=== PATIENT | male | born 1940 | race Caucasian/White ===

== ENCOUNTER 2016-08-08 21:28 | Inpatient (IN) | payer OTHER ==
[~2016-08-08] VITALS: Ht 180.3 cm; Wt 84.7 kg
[2016-08-08 21:59] LABS: HEMATOCRIT 27.7 % (38.0-50.0); MCH 30.7 PG (29.0-34.0); MCHC 32.1 G/DL (30.0-36.0); MCV 95.5 FL (86-99); MEAN PLAT.VOLUME 9.9 uM^3 (9.0-12.4); PLATELET COUNT 167 K/uL (156-360); RBC DIS.WIDTH-CV 13.1 % (11.8-14.6); RBC DIS.WIDTH-SD 43.6 % (39-53); WHITE BLOOD COUNT 5.4 K/uL (4.1-10.2)
[2016-08-08 22:12] LABS: CHLORIDE 109 mEq/L (99-109); POTASSIUM 4.4 mEq/L (3.7-5.4); SODIUM 141 mEq/L (136-147)
[2016-08-08 22:13] LABS: GLUCOSE 146 mg/dL (70-99)
[2016-08-08 22:15] LABS: ANION GAP 13 MEQ/L (2-14)
[2016-08-08 22:17] LABS: GFR ESTIMATE (CALCULATED) 9 mL/min/
[2016-08-08 22:18] LABS: UREA NITROGEN (BUN) 28 mg/dL (9-23)
[2016-08-08 22:20] LABS: TROP-I INTERPRETATION NEGATIVE; TROPONIN-I 0.25 ng/mL (0.0-0.30)
[2016-08-08] MEDS ORDERED: RENVELA800 MG PO ×2 (23:15)
[2016-08-08] MEDS ORDERED: ASPIR 8181 M1 PO (23:15)
[2016-08-08] MEDS ORDERED: CARVEDILOL25 MG PO (23:15)
[2016-08-08] MEDS ORDERED: ATORVASTATIN CA40 MG PO (23:15)
[2016-08-08] MEDS ORDERED: OMEPRAZOLE20 MG PO (23:15)
[2016-08-08] MEDS ORDERED: REQUIP4 MG PO ×3 (23:23→23:26)
[2016-08-09] VITALS (7 sets, daily range): BP systolic 116–160; BP diastolic 64–78
[2016-08-09 03:25] LABS: TROP-I INTERPRETATION INDETERMINATE; TROPONIN-I 0.44 ng/mL (0.0-0.30)
[2016-08-09 10:43] LABS: TROP-I INTERPRETATION POSITIVE; TROPONIN-I 0.72 ng/mL (0.0-0.30)
[2016-08-09 13:56] LABS: INTER. NORMALIZED RATIO 1.1; PROTHROMBIN TIME 10.7 (9.2-11.2); PTT 29.2 (25-32)
[2016-08-09 19:13] LABS: TROP-I INTERPRETATION POSITIVE
[2016-08-09 19:36] LABS: TROPONIN-I 0.73 ng/mL (0.0-0.30)
[2016-08-10 00:01] VITALS: BP 154/78
[2016-08-10 00:56] LABS: TROP-I INTERPRETATION POSITIVE
[2016-08-10 03:54] VITALS: BP 143/73
[2016-08-10 04:32] LABS: EOSINOPHIL (%) 3.7 % (0-5); EOSINOPHIL COUNT 0.2 K/uL (0-0.3); LYMPHOCYTE COUNT 0.7 K/uL (1.0-2.8); MCH 30.7 PG (29.0-34.0); MCHC 32.3 G/DL (30.0-36.0); MCV 94.9 FL (86-99); MEAN PLAT.VOLUME 9.7 uM^3 (9.0-12.4); MONOCYTE (%) 10.7 % (3-12); MONOCYTE COUNT 0.5 K/uL (0-0.8); NEUTROPHIL (%) 70.4 % (45-76); NEUTROPHIL COUNT 3.4 K/uL (1.8-6.4); PLATELET COUNT 133 K/uL (156-360); RBC DIS.WIDTH-CV 13.1 % (11.8-14.6); RED BLOOD COUNT 2.74 M/uL (4.00-5.50); WHITE BLOOD COUNT 4.9 K/uL (4.1-10.2)
[2016-08-10 04:44] LABS: CHLORIDE 104 mEq/L (99-109); POTASSIUM 4.9 mEq/L (3.7-5.4); SODIUM 137 mEq/L (136-147)
[2016-08-10 04:45] LABS: MAGNESIUM 2.2 mg/dL (1.3-2.7)
[2016-08-10 04:46] LABS: GLUCOSE 137 mg/dL (70-99)
[2016-08-10 04:47] LABS: ANION GAP 17 MEQ/L (2-14)
[2016-08-10 04:50] LABS: GFR ESTIMATE (CALCULATED) 6 mL/min/
[2016-08-10 04:52] LABS: TROP-I INTERPRETATION POSITIVE
[2016-08-10 04:57] LABS: UREA NITROGEN (BUN) 56 mg/dL (9-23)
[2016-08-10 04:58] LABS: TROPONIN-I 0.72 ng/mL (0.0-0.30)
[2016-08-10 08:28] VITALS: BP 150/72
[2016-08-10 12:02] VITALS: BP 157/75
[2016-08-10 12:34] LABS: TROP-I INTERPRETATION POSITIVE
[2016-08-10 12:35] LABS: TROPONIN-I 0.64 ng/mL (0.0-0.30)
[2016-08-10 20:28] VITALS: BP 158/77
[2016-08-11 00:01] VITALS: BP 138/65
[2016-08-11 03:30] LABS: EOSINOPHIL COUNT 0.1 K/uL (0-0.3); HEMATOCRIT 26.8 % (38.0-50.0); LYMPHOCYTE COUNT 0.5 K/uL (1.0-2.8); MCH 30.8 PG (29.0-34.0); MCHC 32.8 G/DL (30.0-36.0); MCV 93.7 FL (86-99); MEAN PLAT.VOLUME 10.1 uM^3 (9.0-12.4); MONOCYTE (%) 13.3 % (3-12); MONOCYTE COUNT 0.5 K/uL (0-0.8); NEUTROPHIL (%) 71.2 % (45-76); NEUTROPHIL COUNT 2.9 K/uL (1.8-6.4); PLATELET COUNT 152 K/uL (156-360); RBC DIS.WIDTH-SD 42.2 % (39-53); RED BLOOD COUNT 2.86 M/uL (4.00-5.50); WHITE BLOOD COUNT 4.1 K/uL (4.1-10.2)
[2016-08-11 03:33] LABS: CHLORIDE 98 mEq/L (99-109); POTASSIUM 3.9 mEq/L (3.7-5.4); SODIUM 138 mEq/L (136-147)
[2016-08-11 03:35] LABS: GLUCOSE 139 mg/dL (70-99)
[2016-08-11 03:36] LABS: ANION GAP 12 MEQ/L (2-14)
[2016-08-11 03:39] LABS: GFR ESTIMATE (CALCULATED) 10 mL/min/; UREA NITROGEN (BUN) 28 mg/dL (9-23)
[2016-08-11 03:40] VITALS: BP 127/65
[2016-08-11 12:00] VITALS: BP 115/57
[2016-08-11] MEDS ORDERED: CLOPIDOGREL75 MG PO (14:19)
[2016-08-11] MEDS ORDERED: LISINOPRIL2.5 MG PO (14:19)
== END 2016-08-11 16:44 | disposition home or self-care (01) | DRG 280 ==
LOC: EME → EDBD 21:28 → EME 21:28 → EDOF 22:59 → 5WEST 23:57 → 4EAST 08-09 13:59 → 5WEST 08-09 13:59 → 4EAST 08-09 18:04
PROVIDERS: Hospitalist; Internal Medicine Cardiovascular Disease; Internal Medicine Nephrology; Physician Assistant
PROC: 5A1D60Z (ICD-10-PCS; principal; 2016-08-10)
DX: I22.2 Subsequent non-ST elevation (NSTEMI) myocardial infarction (principal); E87.2 Acidosis; Q61.9 Cystic kidney disease, unspecified; N18.6 End stage renal disease; I12.0 Hypertensive chronic kidney disease with stage 5 chronic kidney disease or end stage renal disease; I21.4 Non-ST elevation (NSTEMI) myocardial infarction; I25.5 Ischemic cardiomyopathy; I25.10 Atherosclerotic heart disease of native coronary artery without angina pectoris; J44.9 Chronic obstructive pulmonary disease, unspecified; D64.9 Anemia, unspecified; E78.5 Hyperlipidemia, unspecified; Z79.82 Long term (current) use of aspirin; Z87.891 Personal history of nicotine dependence; Z99.2 Dependence on renal dialysis; Z95.810 Presence of automatic (implantable) cardiac defibrillator; Z86.74 Personal history of sudden cardiac arrest; E87.70 Fluid overload, unspecified; I50.9 Heart failure, unspecified
CPT/HCPCS: 71020; 74176; 76705; 76775; 80048; 83605; 83735; 84100; 84484; 85025; 85027; 85610; 85730; 93005; 99281; 99284; G0378; J0696; J1644; J2270; J2405; J7050

== ENCOUNTER 2017-01-07 18:37 | Inpatient (IN) | payer OTHER, MEDICARE ==
[~2017-01-07] VITALS: Ht 175.3 cm; Wt 81.2 kg
[~2017-01-07 18:37] MED LIST: ASPIR 8181 M1 PO; ATORVASTATIN CA40 MG PO; CARVEDILOL25 MG PO; CLOPIDOGREL75 MG PO; LISINOPRIL2.5 MG PO; OMEPRAZOLE20 MG PO; RENVELA800 MG PO; REQUIP4 MG PO
[2017-01-07 19:44] LABS: EOSINOPHIL (%) 5.7 % (0-5); EOSINOPHIL COUNT 0.3 K/uL (0-0.3); HEMATOCRIT 24.2 % (38.0-50.0); IMMATURE GRANULOCYTE (%) 0.5 % (0.0-0.7); INSTRUMENT ABS NEUTROPHIL CT 4.4 K/uL; LYMPHOCYTE COUNT 0.5 K/uL (1.0-2.8); MCH 29.6 PG (29.0-34.0); MCHC 33.1 G/DL (30.0-36.0); MCV 89.6 FL (86-99); MEAN PLAT.VOLUME 9.7 uM^3 (9.0-12.4); MONOCYTE (%) 11.6 % (3-12); MONOCYTE COUNT 0.7 K/uL (0-0.8); NEUTROPHIL (%) 73.5 % (45-76); NEUTROPHIL COUNT 4.4 K/uL (1.8-6.4); PLATELET COUNT 156 K/uL (156-360); RBC DIS.WIDTH-CV 16.4 % (11.8-14.6); RBC DIS.WIDTH-SD 53.5 % (39-53); WHITE BLOOD COUNT 5.9 K/uL (4.1-10.2)
[2017-01-07 19:53] LABS: CHLORIDE 102 mEq/L (99-109); POTASSIUM 4.2 mEq/L (3.7-5.4); SODIUM 140 mEq/L (136-147)
[2017-01-07 19:56] LABS: GLUCOSE 133 mg/dL (70-99)
[2017-01-07 19:57] LABS: ANION GAP 12 MEQ/L (2-14); TOTAL BILIRUBIN 0.6 mg/dL (0.0-1.0)
[2017-01-07 19:59] LABS: ALKALINE PHOSPHATASE 61 IU/L (3-129); GFR ESTIMATE (CALCULATED) 10 mL/min/
[2017-01-07 20:00] LABS: UREA NITROGEN (BUN) 61 mg/dL (9-23)
[2017-01-07 20:05] LABS: TROP-I INTERPRETATION NEGATIVE; TROPONIN-I 0.19 ng/mL (0.0-0.30)
[2017-01-07] MEDS ORDERED: LIPITOR80 MG PO (21:35)
[2017-01-07] MEDS ORDERED: PLAVIX75 MG PO (21:35)
[2017-01-07] MEDS ORDERED: CARVEDILOL12.5 MG PO (21:36)
[2017-01-07] MEDS ORDERED: LISINOPRIL10 MG PO (21:37)
[2017-01-07] MEDS ORDERED: REQUIP0.5 MG PO (21:39)
[2017-01-07] MEDS ORDERED: PROTONIX40 MG PO (21:43)
[2017-01-07] MEDS ORDERED: SENSIPAR30 MG PO (21:44)
[2017-01-07 23:38] VITALS: BP 107/67
[2017-01-08] VITALS (8 sets, daily range): BP systolic 101–117; BP diastolic 54–68
[2017-01-08 00:52] LABS: EOSINOPHIL (%) 5.9 % (0-5); EOSINOPHIL COUNT 0.3 K/uL (0-0.3); HEMATOCRIT 22.3 % (38.0-50.0); IMMATURE GRANULOCYTE (%) 0.2 % (0.0-0.7); INSTRUMENT ABS NEUTROPHIL CT 3.9 K/uL; LYMPHOCYTE COUNT 0.5 K/uL (1.0-2.8); MCH 29.7 PG (29.0-34.0); MCHC 33.2 G/DL (30.0-36.0); MCV 89.6 FL (86-99); MEAN PLAT.VOLUME 9.5 uM^3 (9.0-12.4); MONOCYTE (%) 12.1 % (3-12); MONOCYTE COUNT 0.7 K/uL (0-0.8); NEUTROPHIL (%) 71.4 % (45-76); NEUTROPHIL COUNT 3.9 K/uL (1.8-6.4); PLATELET COUNT 130 K/uL (156-360); RBC DIS.WIDTH-CV 16.4 % (11.8-14.6); RBC DIS.WIDTH-SD 53.4 % (39-53); RED BLOOD COUNT 2.49 M/uL (4.00-5.50); WHITE BLOOD COUNT 5.4 K/uL (4.1-10.2)
[2017-01-08 01:15] LABS: TROP-I INTERPRETATION NEGATIVE; TROPONIN-I 0.18 ng/mL (0.0-0.30)
[2017-01-08 07:40] LABS: EOSINOPHIL (%) 5.7 % (0-5); EOSINOPHIL COUNT 0.3 K/uL (0-0.3); HEMATOCRIT 22.4 % (38.0-50.0); IMMATURE GRANULOCYTE (%) 0.5 % (0.0-0.7); INSTRUMENT ABS NEUTROPHIL CT 4.4 K/uL; LYMPHOCYTE COUNT 0.6 K/uL (1.0-2.8); MCHC 32.1 G/DL (30.0-36.0); MCV 93.3 FL (86-99); MEAN PLAT.VOLUME 10.3 uM^3 (9.0-12.4); MONOCYTE (%) 10.5 % (3-12); MONOCYTE COUNT 0.6 K/uL (0-0.8); NEUTROPHIL (%) 73.6 % (45-76); NEUTROPHIL COUNT 4.4 K/uL (1.8-6.4); PLATELET COUNT 143 K/uL (156-360); RBC DIS.WIDTH-CV 16.3 % (11.8-14.6); RBC DIS.WIDTH-SD 55.5 % (39-53)
[2017-01-08 07:57] LABS: INTER. NORMALIZED RATIO 1.9; PROTHROMBIN TIME 19.5 (9.2-11.2); PTT 36.4 (25-32)
[2017-01-08 08:08] LABS: ALKALINE PHOSPHATASE 62 IU/L (3-129); ANION GAP 15 MEQ/L (2-14); CHLORIDE 102 MEQ/L (99-109); GFR ESTIMATE (CALCULATED) 9 mL/min/; GLUCOSE 92 mg/dL (70-99); POTASSIUM 4.6 MEQ/L (3.7-5.4); SAMPLE HEMOLYSIS CHECK 0; SAMPLE ICTERIC CHECK 0; SAMPLE LIPEMIA CHECK 0; SODIUM 137 MEQ/L (136-147); TOTAL BILIRUBIN 0.4 MG/DL (0.0-1.0); UREA NITROGEN (BUN) 77 mg/dL (9-23)
[2017-01-08 08:12] LABS: TROP-I INTERPRETATION NEGATIVE; TROPONIN-I 0.15 ng/mL (0.0-0.30)
[2017-01-08 14:26] LABS: ANTI-HEPATITIS B CORE (TOTAL) Nonreactive; HBCT INDEX 0.05; HPCA INDEX 0.07
[2017-01-08 14:27] LABS: AHBS INDEX 0.73; HEPATITIS B SURFACE ANTIBODY Nonreactive
[2017-01-08 21:20] LABS: EOSINOPHIL (%) 6.6 % (0-5); EOSINOPHIL COUNT 0.3 K/uL (0-0.3); IMMATURE GRANULOCYTE (%) 0.2 % (0.0-0.7); INSTRUMENT ABS NEUTROPHIL CT 3.4 K/uL; LYMPHOCYTE COUNT 0.5 K/uL (1.0-2.8); MCHC 34.1 G/DL (30.0-36.0); MCV 90.9 FL (86-99); MEAN PLAT.VOLUME 9.8 uM^3 (9.0-12.4); MONOCYTE (%) 11.4 % (3-12); MONOCYTE COUNT 0.6 K/uL (0-0.8); NEUTROPHIL COUNT 3.4 K/uL (1.8-6.4); PLATELET COUNT 139 K/uL (156-360); RBC DIS.WIDTH-CV 15.3 % (11.8-14.6); RBC DIS.WIDTH-SD 51.2 % (39-53); RED BLOOD COUNT 2.42 M/uL (4.00-5.50); WHITE BLOOD COUNT 4.8 K/uL (4.1-10.2)
[2017-01-08 21:35] LABS: INTER. NORMALIZED RATIO 1.1; PTT 24.3 (25-32)
[2017-01-08 22:18] LABS: METH RESISTANT S AUREUS PCR NEGATIVE (NEGATIVE)
[2017-01-08 22:32] LABS: PROBE CHECK PASS; SPECIMEN PROCESSING CONTROL PASS
[2017-01-08 22:35] LABS: PROTHROMBIN TIME 10.7 (9.2-11.2)
[2017-01-09] VITALS (18 sets, daily range): BP systolic 84–111; BP diastolic 40–67
[2017-01-09 00:53] LABS: POINT-OF-CARE METER ID UU13113803
[2017-01-09 06:37] LABS: EOSINOPHIL (%) 6.5 % (0-5); EOSINOPHIL COUNT 0.3 K/uL (0-0.3); HEMATOCRIT 22.8 % (38.0-50.0); IMMATURE GRANULOCYTE (%) 0.4 % (0.0-0.7); LYMPHOCYTE COUNT 0.4 K/uL (1.0-2.8); MCH 30.2 PG (29.0-34.0); MCHC 32.9 G/DL (30.0-36.0); MCV 91.9 FL (86-99); MONOCYTE (%) 9.4 % (3-12); MONOCYTE COUNT 0.5 K/uL (0-0.8); NEUTROPHIL (%) 75.5 % (45-76); PLATELET COUNT 161 K/uL (156-360); RBC DIS.WIDTH-CV 15.5 % (11.8-14.6); RBC DIS.WIDTH-SD 51.2 % (39-53); RED BLOOD COUNT 2.48 M/uL (4.00-5.50); WHITE BLOOD COUNT 5.2 K/uL (4.1-10.2)
[2017-01-09 06:49] LABS: INTER. NORMALIZED RATIO 1.1; PROTHROMBIN TIME 10.7 (9.2-11.2); PTT 28.4 (25-32)
[2017-01-09 07:11] LABS: FIBRINOGEN 459 MG/DL (160-450)
[2017-01-09 07:15] LABS: ALKALINE PHOSPHATASE 68 IU/L (3-129); ANION GAP 12 MEQ/L (2-14); CHLORIDE 101 MEQ/L (99-109); GFR ESTIMATE (CALCULATED) 14 mL/min/; LACTATE DEHYDROGENASE 160 IU/L (20-246); POTASSIUM 3.8 MEQ/L (3.7-5.4); SAMPLE HEMOLYSIS CHECK 0; SAMPLE ICTERIC CHECK 0; SAMPLE LIPEMIA CHECK 0; SODIUM 140 MEQ/L (136-147); TOTAL BILIRUBIN 0.4 MG/DL (0.0-1.0); UREA NITROGEN (BUN) 43 mg/dL (9-23)
[2017-01-09 07:16] LABS: GLUCOSE 181 mg/dL (70-99)
[2017-01-09 18:38] LABS: HEMATOCRIT 29.1 % (38.0-50.0); MCV 90.1 FL (86-99)
== END 2017-01-09 22:25 | disposition short-term general hospital (02) | DRG 377 ==
LOC: EME 18:37 → 5SOUTH 21:13 → EDOF 21:13 → 4WEST 21:13 → 5SOUTH 22:44 → 4WEST 01-08 19:12
PROVIDERS: Internal Medicine; Internal Medicine Nephrology; Obstetrics & Gynecology; Physician Assistant; Specialist; Student in an Organized Health Care Education/Training Program
PROC: 5A1D60Z (ICD-10-PCS; principal; 2017-01-08)
PROC: 30233N1 Transfusion of Nonautologous Red Blood Cells into Peripheral Vein, Percutaneous Approach (ICD-10-PCS; 2017-01-08)
PROC: 0DJ08ZZ Inspection of Upper Intestinal Tract, Via Natural or Artificial Opening Endoscopic (ICD-10-PCS; 2017-01-08)
PROC: 02HV33Z Insertion of Infusion Device into Superior Vena Cava, Percutaneous Approach (ICD-10-PCS; 2017-01-09)
DX: K92.1 Melena (principal); I21.4 Non-ST elevation (NSTEMI) myocardial infarction; I47.2 Ventricular tachycardia; I13.2 Hypertensive heart and chronic kidney disease with heart failure and with stage 5 chronic kidney disease, or end stage renal disease; N18.6 End stage renal disease; I50.9 Heart failure, unspecified; R79.1 Abnormal coagulation profile; D64.9 Anemia, unspecified; K29.70 Gastritis, unspecified, without bleeding; K25.9 Gastric ulcer, unspecified as acute or chronic, without hemorrhage or perforation; K29.80 Duodenitis without bleeding; I25.5 Ischemic cardiomyopathy; I25.10 Atherosclerotic heart disease of native coronary artery without angina pectoris; E78.5 Hyperlipidemia, unspecified; J44.9 Chronic obstructive pulmonary disease, unspecified; Z86.74 Personal history of sudden cardiac arrest; Z99.2 Dependence on renal dialysis; Z95.810 Presence of automatic (implantable) cardiac defibrillator; Z95.5 Presence of coronary angioplasty implant and graft; Z79.02 Long term (current) use of antithrombotics/antiplatelets; Z79.82 Long term (current) use of aspirin; Z87.891 Personal history of nicotine dependence; I25.2 Old myocardial infarction
CPT/HCPCS: 71010; 80053; 81003; 82948; 83010 90; 83615; 83880; 84100; 84484; 85014; 85018; 85025; 85025 91; 85384; 85610; 85730; 86704; 86706; 86803; 86900; 86901; 86920; 87340; 87641; 93005; 94640; 94640 76; 94799; 99202; 99281; 99284; C1894; C9113; J0881; J1815; J3430; J7030; P9016

== ENCOUNTER 2017-08-18 10:46 | Day surgery (SDC) | payer OTHER, MEDICARE ==
[~2017-08-18] VITALS: Ht 180.3 cm; Wt 74.8 kg
[~2017-08-18 10:46] MED LIST changes: +CARVEDILOL12.5 MG PO; +LIPITOR80 MG PO; +LISINOPRIL10 MG PO; +PLAVIX75 MG PO; +PROTONIX40 MG PO; +REQUIP0.5 MG PO; +SENSIPAR30 MG PO
[2017-08-18 12:10] VITALS: BP 129/63
[2017-08-18 12:40] LABS: HEMATOCRIT 29.5 % (38.0-50.0); HEMOGLOBIN 9.2 G/DL (12.5-16.6); MCH 31.2 PG (29.0-34.0); MCHC 31.2 G/DL (30.0-36.0); PLATELET COUNT 139 K/uL (156-360); RBC DIS.WIDTH-SD 62.4 % (39-53); RED BLOOD COUNT 2.95 M/uL (4.00-5.50); WHITE BLOOD COUNT 5.9 K/uL (4.1-10.2)
[2017-08-18 13:01] LABS: CHLORIDE 103 MEQ/L (99-109); CREATININE 4.8 MG/DL (0.6-1.3); GFR ESTIMATE (CALCULATED) 13 mL/min/ (58.99-99999); GLUCOSE 81 mg/dL (70-99); POTASSIUM 5.2 MEQ/L (3.7-5.4); SODIUM 139 MEQ/L (136-147); UREA NITROGEN (BUN) 25 mg/dL (9-23)
[2017-08-18 16:30] VITALS: BP 134/63
[2017-08-18 17:04] VITALS: BP 130/60
== END 2017-08-18 17:18 | disposition home or self-care (01) ==
LOC: SDC 10:46
PROVIDERS: Surgery
DX: I12.0 Hypertensive chronic kidney disease with stage 5 chronic kidney disease or end stage renal disease (principal); N18.6 End stage renal disease; Z99.2 Dependence on renal dialysis; I25.10 Atherosclerotic heart disease of native coronary artery without angina pectoris; I83.90 Asymptomatic varicose veins of unspecified lower extremity; I25.2 Old myocardial infarction; J44.9 Chronic obstructive pulmonary disease, unspecified; K21.9 Gastro-esophageal reflux disease without esophagitis; Z95.5 Presence of coronary angioplasty implant and graft; Z95.0 Presence of cardiac pacemaker; Z87.891 Personal history of nicotine dependence
CPT/HCPCS: 71046; 80048; 85027; 87641; C1768; J0690; J1644; J1885; J2250; J2405; J2720; J3010

== ENCOUNTER 2017-09-05 17:28 | Inpatient (IN) | payer OTHER, MEDICARE ==
[~2017-09-05] VITALS: Ht 170.2 cm; Wt 75.8 kg
[2017-09-05 18:39] LABS: HEMATOCRIT 27.3 % (38.0-50.0); HEMOGLOBIN 8.6 G/DL (12.5-16.6); MCH 31.7 PG (29.0-34.0); MCHC 31.5 G/DL (30.0-36.0); MCV 100.7 FL (86-99); PLATELET COUNT 135 K/uL (156-360); RBC DIS.WIDTH-CV 16.5 % (11.8-14.6); RED BLOOD COUNT 2.71 M/uL (4.00-5.50); WHITE BLOOD COUNT 4.9 K/uL (4.1-10.2)
[2017-09-05 18:47] LABS: CHLORIDE 107 mEq/L (99-109); POTASSIUM 4.6 mEq/L (3.7-5.4); SODIUM 142 mEq/L (136-147)
[2017-09-05 18:48] LABS: GLUCOSE 143 mg/dL (70-99)
[2017-09-05 18:52] LABS: GFR ESTIMATE (CALCULATED) 10 mL/min/ (58.99-99999)
[2017-09-05 18:53] LABS: UREA NITROGEN (BUN) 29 mg/dL (9-23)
[2017-09-05 18:58] LABS: TROP-I INTERPRETATION NEGATIVE; TROPONIN-I 0.15 ng/mL (0.0-0.30)
[2017-09-05] MEDS ORDERED: CEFADROXIL500 MG PO (22:14)
[2017-09-05] MEDS ORDERED: ONDANSETRON HCL4 MG PO (22:15)
[2017-09-05] MEDS ORDERED: PANTOPRAZOLE SO20 MG PO (22:16)
[2017-09-05] MEDS ORDERED: ANTI-DIARRHEA2 MG PO (22:17)
[2017-09-05] MEDS ORDERED: CARVEDILOL25 MG PO (22:19)
[2017-09-05] MEDS ORDERED: ATORVASTATIN CA20 MG PO (22:20)
[2017-09-05] MEDS ORDERED: SYMBICORT60 INHALA1 IH (22:25)
[2017-09-06] VITALS (13 sets, daily range): BP systolic 80–172; BP diastolic 40–82
[2017-09-06 01:18] LABS: TROP-I INTERPRETATION NEGATIVE; TROPONIN-I 0.15 ng/mL (0.0-0.30)
[2017-09-06 05:37] LABS: HEMATOCRIT 26.4 % (38.0-50.0); HEMOGLOBIN 8.2 G/DL (12.5-16.6); MCV 101.1 FL (86-99)
[2017-09-06 12:21] LABS: HEPATITIS B SURFACE ANTIBODY Nonreactive; HEPATITIS B SURFACE ANTIGEN Nonreactive
[2017-09-06 17:17] LABS: HEMATOCRIT 23.7 % (38.0-50.0); HEMOGLOBIN 7.9 G/DL (12.5-16.6)
[2017-09-06 17:18] LABS: MCV 94.8 FL (86-99)
[2017-09-06 22:31] LABS: HEMATOCRIT 24.7 % (38.0-50.0); HEMOGLOBIN 8.1 G/DL (12.5-16.6); MCV 93.6 FL (86-99)
[2017-09-07 03:42] VITALS: BP 105/53
[2017-09-07 05:56] LABS: BASOPHIL (%) 0.4 % (0-1); EOSINOPHIL (%) 2.1 % (0-5); EOSINOPHIL COUNT 0.1 K/uL (0-0.3); HEMATOCRIT 25.2 % (38.0-50.0); HEMOGLOBIN 8.1 G/DL (12.5-16.6); IMMATURE GRANULOCYTE (%) 0.2 % (0.0-0.7); LYMPHOCYTE (%) 10.3 % (15-42); LYMPHOCYTE COUNT 0.5 K/uL (1.0-2.8); MCHC 32.1 G/DL (30.0-36.0); MCV 93.3 FL (86-99); MONOCYTE (%) 14.9 % (3-12); MONOCYTE COUNT 0.7 K/uL (0-0.8); NEUTROPHIL (%) 72.1 % (45-76); NEUTROPHIL COUNT 3.4 K/uL (1.8-6.4); PLATELET COUNT 128 K/uL (156-360); RBC DIS.WIDTH-CV 18.4 % (11.8-14.6); RBC DIS.WIDTH-SD 62.1 % (39-53); WHITE BLOOD COUNT 4.8 K/uL (4.1-10.2)
[2017-09-07 06:11] LABS: ALBUMIN 3.3 G/DL (3.2-4.8); ALKALINE PHOSPHATASE 211 IU/L (3-129); ALT (GPT) 4 IU/L (3-49); AST (GOT) 13 IU/L (2-34); CHLORIDE 98 MEQ/L (99-109); GFR ESTIMATE (CALCULATED) 13 mL/min/ (58.99-99999); POTASSIUM 4.7 MEQ/L (3.7-5.4); SODIUM 140 MEQ/L (136-147); TOTAL BILIRUBIN 0.7 MG/DL (0.0-1.0); TOTAL PROTEIN 5.7 G/DL (6.4-8.3); UREA NITROGEN (BUN) 40 mg/dL (9-23)
[2017-09-07 06:13] LABS: GLUCOSE 92 mg/dL (70-99)
[2017-09-07 06:14] LABS: CREATININE 4.7 MG/DL (0.6-1.3)
[2017-09-07 06:56] VITALS: BP 108/55
[2017-09-07 12:38] VITALS: BP 99/60
[2017-09-07 16:00] VITALS: BP 109/59
[2017-09-07 18:24] LABS: HEMATOCRIT 25.8 % (38.0-50.0); HEMOGLOBIN 8.6 G/DL (12.5-16.6); MCH 31.4 PG (29.0-34.0); MCHC 33.3 G/DL (30.0-36.0); MCV 94.2 FL (86-99); PLATELET COUNT 122 K/uL (156-360); RBC DIS.WIDTH-CV 18.2 % (11.8-14.6); RBC DIS.WIDTH-SD 61.8 % (39-53); RED BLOOD COUNT 2.74 M/uL (4.00-5.50); WHITE BLOOD COUNT 4.8 K/uL (4.1-10.2)
[2017-09-07 20:00] VITALS: BP 129/63
[2017-09-07 23:54] VITALS: BP 100/56
[2017-09-08] VITALS (9 sets, daily range): BP systolic 103–132; BP diastolic 31–64
[2017-09-08 05:11] LABS: BASOPHIL (%) 0.5 % (0-1); EOSINOPHIL (%) 3.9 % (0-5); EOSINOPHIL COUNT 0.2 K/uL (0-0.3); HEMATOCRIT 23.8 % (38.0-50.0); HEMOGLOBIN 7.8 G/DL (12.5-16.6); IMMATURE GRANULOCYTE (%) 0.2 % (0.0-0.7); LYMPHOCYTE (%) 9.8 % (15-42); LYMPHOCYTE COUNT 0.4 K/uL (1.0-2.8); MCHC 32.8 G/DL (30.0-36.0); MCV 94.4 FL (86-99); MONOCYTE (%) 18.5 % (3-12); MONOCYTE COUNT 0.8 K/uL (0-0.8); NEUTROPHIL (%) 67.1 % (45-76); NEUTROPHIL COUNT 2.9 K/uL (1.8-6.4); PLATELET COUNT 120 K/uL (156-360); RBC DIS.WIDTH-CV 17.4 % (11.8-14.6); RBC DIS.WIDTH-SD 60.5 % (39-53); RED BLOOD COUNT 2.52 M/uL (4.00-5.50); WHITE BLOOD COUNT 4.4 K/uL (4.1-10.2)
[2017-09-08 05:37] LABS: CHLORIDE 101 MEQ/L (99-109); GFR ESTIMATE (CALCULATED) 16 mL/min/ (58.99-99999); GLUCOSE 79 mg/dL (70-99); POTASSIUM 3.9 MEQ/L (3.7-5.4); SODIUM 140 MEQ/L (136-147); UREA NITROGEN (BUN) 26 mg/dL (9-23)
[2017-09-08 17:58] LABS: BASOPHIL (%) 0.7 % (0-1); EOSINOPHIL (%) 3.3 % (0-5); EOSINOPHIL COUNT 0.2 K/uL (0-0.3); HEMATOCRIT 26.7 % (38.0-50.0); HEMOGLOBIN 8.8 G/DL (12.5-16.6); IMMATURE GRANULOCYTE (%) 0.3 % (0.0-0.7); LYMPHOCYTE (%) 8.7 % (15-42); LYMPHOCYTE COUNT 0.5 K/uL (1.0-2.8); MCH 30.8 PG (29.0-34.0); MCV 93.4 FL (86-99); MONOCYTE (%) 14.6 % (3-12); MONOCYTE COUNT 0.8 K/uL (0-0.8); NEUTROPHIL (%) 72.4 % (45-76); NEUTROPHIL COUNT 4.2 K/uL (1.8-6.4); PLATELET COUNT 118 K/uL (156-360); RBC DIS.WIDTH-CV 16.8 % (11.8-14.6); RBC DIS.WIDTH-SD 57.5 % (39-53); RED BLOOD COUNT 2.86 M/uL (4.00-5.50); WHITE BLOOD COUNT 5.8 K/uL (4.1-10.2)
[2017-09-09 04:06] VITALS: BP 130/63
[2017-09-09 05:55] LABS: BASOPHIL (%) 0.2 % (0-1); EOSINOPHIL (%) 4.3 % (0-5); EOSINOPHIL COUNT 0.2 K/uL (0-0.3); HEMATOCRIT 25.8 % (38.0-50.0); HEMOGLOBIN 8.3 G/DL (12.5-16.6); IMMATURE GRANULOCYTE (%) 0.4 % (0.0-0.7); LYMPHOCYTE (%) 9.6 % (15-42); LYMPHOCYTE COUNT 0.5 K/uL (1.0-2.8); MCH 30.2 PG (29.0-34.0); MCHC 32.2 G/DL (30.0-36.0); MCV 93.8 FL (86-99); MONOCYTE COUNT 0.8 K/uL (0-0.8); NEUTROPHIL (%) 67.5 % (45-76); NEUTROPHIL COUNT 3.2 K/uL (1.8-6.4); PLATELET COUNT 121 K/uL (156-360); RBC DIS.WIDTH-SD 57.3 % (39-53); RED BLOOD COUNT 2.75 M/uL (4.00-5.50); WHITE BLOOD COUNT 4.7 K/uL (4.1-10.2)
[2017-09-09 06:03] LABS: CHLORIDE 100 MEQ/L (99-109); GFR ESTIMATE (CALCULATED) 11 mL/min/ (58.99-99999); GLUCOSE 85 mg/dL (70-99); POTASSIUM 4.6 MEQ/L (3.7-5.4); SODIUM 137 MEQ/L (136-147); UREA NITROGEN (BUN) 34 mg/dL (9-23)
[2017-09-09 06:05] LABS: CREATININE 5.6 MG/DL (0.6-1.3)
[2017-09-09 07:12] VITALS: BP 122/56
[2017-09-09 12:22] VITALS: BP 116/62
[2017-09-09 15:45] VITALS: BP 138/63
[2017-09-09 17:59] LABS: HEMATOCRIT 28.4 % (38.0-50.0); HEMOGLOBIN 9.4 G/DL (12.5-16.6); MCV 94.7 FL (86-99)
[2017-09-09 20:00] VITALS: BP 134/65
[2017-09-09 23:44] VITALS: BP 139/65
[2017-09-10 04:00] VITALS: BP 128/61
[2017-09-10 06:07] LABS: BASOPHIL (%) 0.5 % (0-1); EOSINOPHIL (%) 3.9 % (0-5); EOSINOPHIL COUNT 0.2 K/uL (0-0.3); HEMATOCRIT 27.2 % (38.0-50.0); HEMOGLOBIN 8.7 G/DL (12.5-16.6); IMMATURE GRANULOCYTE (%) 0.5 % (0.0-0.7); LYMPHOCYTE (%) 11.1 % (15-42); LYMPHOCYTE COUNT 0.5 K/uL (1.0-2.8); MCH 30.5 PG (29.0-34.0); MCV 95.4 FL (86-99); MONOCYTE (%) 15.7 % (3-12); MONOCYTE COUNT 0.6 K/uL (0-0.8); NEUTROPHIL (%) 68.3 % (45-76); NEUTROPHIL COUNT 2.8 K/uL (1.8-6.4); PLATELET COUNT 124 K/uL (156-360); RBC DIS.WIDTH-CV 16.5 % (11.8-14.6); RBC DIS.WIDTH-SD 57.1 % (39-53); RED BLOOD COUNT 2.85 M/uL (4.00-5.50); WHITE BLOOD COUNT 4.1 K/uL (4.1-10.2)
[2017-09-10 06:27] LABS: CHLORIDE 97 MEQ/L (99-109); CREATININE 4.3 MG/DL (0.6-1.3); GFR ESTIMATE (CALCULATED) 14 mL/min/ (58.99-99999); GLUCOSE 90 mg/dL (70-99); POTASSIUM 4.6 MEQ/L (3.7-5.4); SODIUM 138 MEQ/L (136-147); UREA NITROGEN (BUN) 14 mg/dL (9-23)
[2017-09-10 08:00] VITALS: BP 131/62
[2017-09-10 11:48] VITALS: BP 120/57
[2017-09-10 16:05] VITALS: BP 114/56
[2017-09-10 20:03] VITALS: BP 115/56
[2017-09-10 23:41] VITALS: BP 118/61
[2017-09-11 04:00] VITALS: BP 121/59
[2017-09-11 05:53] LABS: CHLORIDE 95 MEQ/L (99-109); CREATININE 6.1 MG/DL (0.6-1.3); GFR ESTIMATE (CALCULATED) 10 mL/min/ (58.99-99999); GLUCOSE 98 mg/dL (70-99); SODIUM 133 MEQ/L (136-147); UREA NITROGEN (BUN) 19 mg/dL (9-23)
[2017-09-11 06:25] LABS: BASOPHIL (%) 0.5 % (0-1); EOSINOPHIL (%) 3.9 % (0-5); EOSINOPHIL COUNT 0.2 K/uL (0-0.3); HEMATOCRIT 25.8 % (38.0-50.0); HEMOGLOBIN 8.4 G/DL (12.5-16.6); IMMATURE GRANULOCYTE (%) 0.2 % (0.0-0.7); LYMPHOCYTE (%) 8.9 % (15-42); LYMPHOCYTE COUNT 0.4 K/uL (1.0-2.8); MCH 31.1 PG (29.0-34.0); MCHC 32.6 G/DL (30.0-36.0); MCV 95.6 FL (86-99); MONOCYTE (%) 15.1 % (3-12); MONOCYTE COUNT 0.7 K/uL (0-0.8); NEUTROPHIL (%) 71.4 % (45-76); NEUTROPHIL COUNT 3.1 K/uL (1.8-6.4); RBC DIS.WIDTH-CV 16.8 % (11.8-14.6); RBC DIS.WIDTH-SD 56.2 % (39-53); WHITE BLOOD COUNT 4.4 K/uL (4.1-10.2)
[2017-09-11 07:45] LABS: PLAT.SUFFICIENCY DECREASED; PLATELET COUNT 120 K/uL (156-360)
[2017-09-11 12:00] VITALS: BP 135/63
[2017-09-11] MEDS ORDERED: CARVEDILOL6.25 MG PO (12:19)
[2017-09-11] MEDS ORDERED: PANTOPRAZOLE SO40 MG PO (12:20)
== END 2017-09-11 14:02 | disposition home or self-care (01) | DRG 291 ==
LOC: EME 17:28 → 4EAST 23:48 → EDOF 23:48 → ENRESERV 23:50 → 5SOUTH 09-06 00:56 → ENRESERV 09-06 05:05 → 4EAST 09-06 05:53 → CANRESERV 09-08 20:17 → ENRESERV 09-08 20:17 → 4EAST 09-11 14:02
PROVIDERS: Hospitalist; Internal Medicine Nephrology; Specialist
DX: I13.2 Hypertensive heart and chronic kidney disease with heart failure and with stage 5 chronic kidney disease, or end stage renal disease (principal); I50.23 Acute on chronic systolic (congestive) heart failure; K31.811 Angiodysplasia of stomach and duodenum with bleeding; K25.4 Chronic or unspecified gastric ulcer with hemorrhage; N18.6 End stage renal disease; E11.22 Type 2 diabetes mellitus with diabetic chronic kidney disease; I95.9 Hypotension, unspecified; D69.6 Thrombocytopenia, unspecified; D63.1 Anemia in chronic kidney disease; D50.0 Iron deficiency anemia secondary to blood loss (chronic); E78.5 Hyperlipidemia, unspecified; I25.10 Atherosclerotic heart disease of native coronary artery without angina pectoris; I25.5 Ischemic cardiomyopathy; I35.0 Nonrheumatic aortic (valve) stenosis; K21.9 Gastro-esophageal reflux disease without esophagitis; J44.9 Chronic obstructive pulmonary disease, unspecified; K57.10 Diverticulosis of small intestine without perforation or abscess without bleeding; K57.30 Diverticulosis of large intestine without perforation or abscess without bleeding; K64.8 Other hemorrhoids; K44.9 Diaphragmatic hernia without obstruction or gangrene; N28.89 Other specified disorders of kidney and ureter; Z95.5 Presence of coronary angioplasty implant and graft; I25.2 Old myocardial infarction; Z86.74 Personal history of sudden cardiac arrest; Z95.810 Presence of automatic (implantable) cardiac defibrillator; Z99.2 Dependence on renal dialysis; Z87.891 Personal history of nicotine dependence; Z79.02 Long term (current) use of antithrombotics/antiplatelets
CPT/HCPCS: 71046; 76770; 80048; 80053; 82948; 83880; 84484; 85014; 85018; 85025; 85025 91; 85027; 86706; 86850; 86900; 86901; 86920; 87340; 87493; 87502; 93005; 94010; 94640 76; 99202; 99281; 99285; J0881; J1756; J2270; J2405; J3010; J7050; P9016; S0164

== ENCOUNTER 2017-09-28 16:46 | Emergency (ER) | payer OTHER, MEDICARE ==
[~2017-09-28] VITALS: Ht 180.3 cm; Wt 77.4 kg
[~2017-09-28 16:46] MED LIST changes: +ANTI-DIARRHEA2 MG PO; +ATORVASTATIN CA20 MG PO; +CARVEDILOL6.25 MG PO; +CEFADROXIL500 MG PO; +ONDANSETRON HCL4 MG PO; +PANTOPRAZOLE SO20 MG PO; +PANTOPRAZOLE SO40 MG PO; +SYMBICORT60 INHALA1 IH
[2017-09-28 18:02] LABS: BASOPHIL (%) 0.4 % (0-1); EOSINOPHIL COUNT 0.1 K/uL (0-0.3); HEMOGLOBIN 9.3 G/DL (12.5-16.6); IMMATURE GRANULOCYTE (%) 0.4 % (0.0-0.7); LYMPHOCYTE (%) 11.7 % (15-42); LYMPHOCYTE COUNT 0.5 K/uL (1.0-2.8); MCHC 33.2 G/DL (30.0-36.0); MCV 96.2 FL (86-99); MONOCYTE (%) 14.7 % (3-12); MONOCYTE COUNT 0.7 K/uL (0-0.8); NEUTROPHIL (%) 69.8 % (45-76); NEUTROPHIL COUNT 3.2 K/uL (1.8-6.4); PLATELET COUNT 155 K/uL (156-360); RBC DIS.WIDTH-CV 15.9 % (11.8-14.6); RBC DIS.WIDTH-SD 57.1 % (39-53); RED BLOOD COUNT 2.91 M/uL (4.00-5.50); WHITE BLOOD COUNT 4.6 K/uL (4.1-10.2)
[2017-09-28 18:21] LABS: ALBUMIN 3.6 g/dL (3.2-4.8); CHLORIDE 96 mEq/L (99-109); POTASSIUM 3.3 mEq/L (3.7-5.4); SODIUM 141 mEq/L (136-147)
[2017-09-28 18:23] LABS: GLUCOSE 123 mg/dL (70-99)
[2017-09-28 18:24] LABS: TOTAL PROTEIN 6.9 g/dL (6.4-8.3)
[2017-09-28 18:25] LABS: TOTAL BILIRUBIN 0.4 mg/dL (0.0-1.0)
[2017-09-28 18:27] LABS: ALKALINE PHOSPHATASE 259 IU/L (3-129); GFR ESTIMATE (CALCULATED) 19 mL/min/ (58.99-99999)
[2017-09-28 18:28] LABS: UREA NITROGEN (BUN) 16 mg/dL (9-23)
[2017-09-28 18:29] LABS: AST (GOT) 13 IU/L (2-34); CREATININE 3.4 mg/dL (0.6-1.3)
[2017-09-28 18:30] LABS: ALT (GPT) 5 IU/L (3-49)
[2017-09-28 18:34] LABS: TROP-I INTERPRETATION POSITIVE
[2017-09-28 18:35] LABS: TROPONIN-I 0.66 ng/mL (0.0-0.30)
[2017-09-28] MEDS ORDERED: TRAMADOL HCL50 MG PO (19:22)
[2017-09-28] MEDS ORDERED: LISINOPRIL5 MG PO (19:22)
[2017-09-28] MEDS ORDERED: CARVEDILOL25 MG PO (19:23)
[2017-09-28] MEDS ORDERED: NEXIUM20 MG PO ×2 (19:27→19:28)
[2017-09-28 20:59] LABS: TROP-I INTERPRETATION POSITIVE
[2017-09-28 21:03] LABS: TROPONIN-I 0.71 ng/mL (0.0-0.30)
[2017-09-28 21:38] VITALS: BP 128/67
[2017-09-29] MEDS ORDERED: PRILOSEC OTC20 MG PO (13:33)
[2017-09-29] MEDS ORDERED: PRILOSEC20 MG PO (13:34)
[2017-09-29] MEDS ORDERED: NEPHRO-VITE,1 TABLET PO (13:35)
== END 2017-09-28 21:40 | disposition left against medical advice (07) ==
LOC: EME 16:46
PROVIDERS: Emergency Medicine
DX: E86.0 Dehydration (principal); R79.89 Other specified abnormal findings of blood chemistry; N18.6 End stage renal disease; Z99.2 Dependence on renal dialysis; I50.9 Heart failure, unspecified; J44.9 Chronic obstructive pulmonary disease, unspecified; I25.2 Old myocardial infarction; I71.4 Abdominal aortic aneurysm, without rupture; H91.90 Unspecified hearing loss, unspecified ear; Z87.891 Personal history of nicotine dependence
CPT/HCPCS: 71046; 80053; 81003; 83605; 84484; 85025; 87040; 87801; 93005; 99281; 99285

== ENCOUNTER 2017-09-29 10:30 | Inpatient (IN) | payer OTHER, MEDICARE ==
[~2017-09-29] VITALS: Ht 180.3 cm; Wt 76.0 kg
[2017-09-29] VITALS (11 sets, daily range): BP systolic 100–132; BP diastolic 54–90
[~2017-09-29 10:30] MED LIST changes: +LISINOPRIL5 MG PO; +NEXIUM20 MG PO; +TRAMADOL HCL50 MG PO
[2017-09-29 11:45] LABS: BASOPHIL (%) 0.4 % (0-1); EOSINOPHIL (%) 2.9 % (0-5); EOSINOPHIL COUNT 0.1 K/uL (0-0.3); HEMATOCRIT 17.2 % (38.0-50.0); IMMATURE GRANULOCYTE (%) 0.4 % (0.0-0.7); LYMPHOCYTE (%) 10.6 % (15-42); LYMPHOCYTE COUNT 0.3 K/uL (1.0-2.8); MCHC 31.4 G/DL (30.0-36.0); MCV 98.9 FL (86-99); MONOCYTE (%) 15.7 % (3-12); MONOCYTE COUNT 0.4 K/uL (0-0.8); NEUTROPHIL COUNT 1.9 K/uL (1.8-6.4); RBC DIS.WIDTH-CV 16.1 % (11.8-14.6); RBC DIS.WIDTH-SD 58.5 % (39-53); WHITE BLOOD COUNT 2.7 K/uL (4.1-10.2)
[2017-09-29 11:46] LABS: HEMOGLOBIN 5.4 G/DL (12.5-16.6); PLATELET COUNT 96 K/uL (156-360); RED BLOOD COUNT 1.74 M/uL (4.00-5.50)
[2017-09-29 11:50] LABS: ALBUMIN 1.8 g/dL (3.2-4.8); CHLORIDE 101 mEq/L (99-109); POTASSIUM 3.7 mEq/L (3.7-5.4)
[2017-09-29 11:51] LABS: SODIUM 137 mEq/L (136-147)
[2017-09-29 11:54] LABS: GLUCOSE 60 mg/dL (70-99); TOTAL PROTEIN 3.2 g/dL (6.4-8.3)
[2017-09-29 11:57] LABS: ALKALINE PHOSPHATASE 129 IU/L (3-129); CREATININE 2.6 mg/dL (0.6-1.3); GFR ESTIMATE (CALCULATED) 26 mL/min/ (58.99-99999); TOTAL BILIRUBIN 0.2 mg/dL (0.0-1.0)
[2017-09-29 11:58] LABS: UREA NITROGEN (BUN) 16 mg/dL (9-23)
[2017-09-29 11:59] LABS: ALT (GPT) 3 IU/L (3-49)
[2017-09-29 12:00] LABS: AST (GOT) 6 IU/L (2-34)
[2017-09-29 12:30] LABS: PLAT.SUFFICIENCY DECREASED
[2017-09-29] MEDS ORDERED: PRILOSEC OTC20 MG PO (13:33)
[2017-09-29] MEDS ORDERED: PRILOSEC20 MG PO (13:34)
[2017-09-29] MEDS ORDERED: NEPHRO-VITE,1 TABLET PO (13:35)
[2017-09-29 15:09] LABS: TROP-I INTERPRETATION POSITIVE
[2017-09-29 15:11] LABS: TROPONIN-I 0.62 ng/mL (0.0-0.30)
[2017-09-29 22:09] LABS: HEMATOCRIT 29.8 % (38.0-50.0); HEMOGLOBIN 9.8 G/DL (12.5-16.6); MCV 95.2 FL (86-99)
[2017-09-29 22:24] LABS: TROP-I INTERPRETATION POSITIVE; TROPONIN-I 0.69 ng/mL (0.0-0.30)
[2017-09-30 02:43] LABS: HEMOGLOBIN 9.5 G/DL (12.5-16.6); MCH 30.9 PG (29.0-34.0); MCHC 32.8 G/DL (30.0-36.0); MCV 94.5 FL (86-99); PLATELET COUNT 120 K/uL (156-360); RBC DIS.WIDTH-CV 15.9 % (11.8-14.6); RBC DIS.WIDTH-SD 54.6 % (39-53); WHITE BLOOD COUNT 4.8 K/uL (4.1-10.2)
[2017-09-30 02:48] LABS: RED BLOOD COUNT 3.07 M/uL (4.00-5.50)
[2017-09-30 02:51] LABS: ALBUMIN 3.6 g/dL (3.2-4.8)
[2017-09-30 02:52] LABS: CHLORIDE 96 mEq/L (99-109); POTASSIUM 4.3 mEq/L (3.7-5.4); SODIUM 138 mEq/L (136-147)
[2017-09-30 02:56] LABS: GLUCOSE 97 mg/dL (70-99)
[2017-09-30 02:57] LABS: GFR ESTIMATE (CALCULATED) 10 mL/min/ (58.99-99999); PHOSPHORUS 6.2 mg/dL (2.5-4.9)
[2017-09-30 03:02] LABS: UREA NITROGEN (BUN) 36 mg/dL (9-23)
[2017-09-30 03:04] LABS: TROP-I INTERPRETATION INDETERMINATE; TROPONIN-I 0.51 ng/mL (0.0-0.30)
[2017-09-30 04:30] VITALS: BP 117/73
[2017-09-30 07:43] VITALS: BP 99/60
[2017-09-30 07:56] VITALS: BP 94/57
[2017-09-30 08:18] LABS: HEMATOCRIT 29.3 % (38.0-50.0); HEMOGLOBIN 9.5 G/DL (12.5-16.6); MCV 94.5 FL (86-99)
[2017-09-30 19:51] LABS: HEMATOCRIT 29.4 % (38.0-50.0); HEMOGLOBIN 9.7 G/DL (12.5-16.6); MCV 94.5 FL (86-99)
[2017-09-30 20:00] VITALS: BP 151/78
[2017-10-01 00:14] VITALS: BP 118/69
[2017-10-01 04:00] VITALS: BP 121/51
[2017-10-01 06:50] LABS: BASOPHIL (%) 0.3 % (0-1); EOSINOPHIL (%) 2.3 % (0-5); EOSINOPHIL COUNT 0.1 K/uL (0-0.3); HEMATOCRIT 29.3 % (38.0-50.0); HEMOGLOBIN 9.6 G/DL (12.5-16.6); IMMATURE GRANULOCYTE (%) 0.3 % (0.0-0.7); LYMPHOCYTE (%) 7.4 % (15-42); LYMPHOCYTE COUNT 0.3 K/uL (1.0-2.8); MCH 30.9 PG (29.0-34.0); MCHC 32.8 G/DL (30.0-36.0); MCV 94.2 FL (86-99); MONOCYTE (%) 13.7 % (3-12); MONOCYTE COUNT 0.5 K/uL (0-0.8); PLATELET COUNT 115 K/uL (156-360); RBC DIS.WIDTH-CV 15.5 % (11.8-14.6); RBC DIS.WIDTH-SD 54.2 % (39-53); RED BLOOD COUNT 3.11 M/uL (4.00-5.50); WHITE BLOOD COUNT 3.9 K/uL (4.1-10.2)
[2017-10-01 07:30] VITALS: BP 133/72
[2017-10-01 07:33] LABS: CHLORIDE 93 MEQ/L (99-109); GLUCOSE 75 mg/dL (70-99); SODIUM 136 MEQ/L (136-147); UREA NITROGEN (BUN) 18 mg/dL (9-23)
[2017-10-01 07:38] LABS: CREATININE 4.5 MG/DL (0.6-1.3); GFR ESTIMATE (CALCULATED) 14 mL/min/ (58.99-99999); VANCOMYCIN, TROUGH < 2.0 MCG/ML (10-20)
[2017-10-01 09:03] LABS: HEMATOCRIT 29.7 % (38.0-50.0); HEMOGLOBIN 9.8 G/DL (12.5-16.6); MCV 95.2 FL (86-99)
[2017-10-01 11:05] VITALS: BP 151/82
[2017-10-01 16:00] VITALS: BP 143/72
[2017-10-01 19:27] VITALS: BP 124/60
[2017-10-01 20:50] LABS: HEMATOCRIT 29.7 % (38.0-50.0); HEMOGLOBIN 9.9 G/DL (12.5-16.6); MCV 95.5 FL (86-99)
[2017-10-02 06:14] LABS: BASOPHIL (%) 0.2 % (0-1); EOSINOPHIL (%) 0.5 % (0-5); HEMATOCRIT 28.7 % (38.0-50.0); HEMOGLOBIN 9.3 G/DL (12.5-16.6); IMMATURE GRANULOCYTE (%) 0.5 % (0.0-0.7); LYMPHOCYTE (%) 5.7 % (15-42); LYMPHOCYTE COUNT 0.3 K/uL (1.0-2.8); MCH 30.4 PG (29.0-34.0); MCHC 32.4 G/DL (30.0-36.0); MCV 93.8 FL (86-99); MONOCYTE (%) 18.4 % (3-12); MONOCYTE COUNT 1.1 K/uL (0-0.8); NEUTROPHIL (%) 74.7 % (45-76); NEUTROPHIL COUNT 4.3 K/uL (1.8-6.4); PLATELET COUNT 116 K/uL (156-360); RBC DIS.WIDTH-CV 15.7 % (11.8-14.6); RBC DIS.WIDTH-SD 54.5 % (39-53); RED BLOOD COUNT 3.06 M/uL (4.00-5.50); WHITE BLOOD COUNT 5.8 K/uL (4.1-10.2)
[2017-10-02 06:57] LABS: ALBUMIN 3.5 G/DL (3.2-4.8); ALKALINE PHOSPHATASE 213 IU/L (3-129); ALT (GPT) 4 IU/L (3-49); AST (GOT) 10 IU/L (2-34); CHLORIDE 91 MEQ/L (99-109); GFR ESTIMATE (CALCULATED) 9 mL/min/ (58.99-99999); POTASSIUM 3.9 MEQ/L (3.7-5.4); SODIUM 136 MEQ/L (136-147); TOTAL BILIRUBIN 0.6 MG/DL (0.0-1.0); TOTAL PROTEIN 5.9 G/DL (6.4-8.3)
[2017-10-02 07:00] LABS: CREATININE 6.7 MG/DL (0.6-1.3); GLUCOSE 107 mg/dL (70-99); UREA NITROGEN (BUN) 28 mg/dL (9-23)
[2017-10-02 08:12] LABS: HEMATOCRIT 27.3 % (38.0-50.0); MCV 93.2 FL (86-99)
[2017-10-02 16:24] VITALS: BP 112/56
[2017-10-02 20:10] VITALS: BP 101/58
[2017-10-03 00:52] VITALS: BP 96/46
[2017-10-03 04:28] LABS: BASOPHIL (%) 0.2 % (0-1); EOSINOPHIL (%) 3.1 % (0-5); EOSINOPHIL COUNT 0.1 K/uL (0-0.3); HEMATOCRIT 27.2 % (38.0-50.0); IMMATURE GRANULOCYTE (%) 0.5 % (0.0-0.7); LYMPHOCYTE COUNT 0.4 K/uL (1.0-2.8); MCH 31.4 PG (29.0-34.0); MCHC 33.1 G/DL (30.0-36.0); MCV 94.8 FL (86-99); MONOCYTE (%) 20.7 % (3-12); MONOCYTE COUNT 0.9 K/uL (0-0.8); NEUTROPHIL (%) 65.5 % (45-76); NEUTROPHIL COUNT 2.8 K/uL (1.8-6.4); PLATELET COUNT 106 K/uL (156-360); RBC DIS.WIDTH-CV 15.6 % (11.8-14.6); RBC DIS.WIDTH-SD 54.1 % (39-53); RED BLOOD COUNT 2.87 M/uL (4.00-5.50); WHITE BLOOD COUNT 4.2 K/uL (4.1-10.2)
[2017-10-03 04:45] VITALS: BP 118/60
[2017-10-03 04:49] LABS: CHLORIDE 96 mEq/L (99-109); POTASSIUM 3.8 mEq/L (3.7-5.4); SODIUM 138 mEq/L (136-147)
[2017-10-03 04:50] LABS: GLUCOSE 111 mg/dL (70-99)
[2017-10-03 04:54] LABS: GFR ESTIMATE (CALCULATED) 11 mL/min/ (58.99-99999)
[2017-10-03 04:55] LABS: UREA NITROGEN (BUN) 22 mg/dL (9-23)
[2017-10-03 05:06] LABS: CREATININE 5.5 mg/dL (0.6-1.3)
[2017-10-03 08:51] VITALS: BP 137/66
[2017-10-03 12:15] VITALS: BP 122/60
[2017-10-03 15:24] VITALS: BP 128/60
[2017-10-03 19:00] VITALS: BP 117/58
[2017-10-03 19:45] LABS: HEMATOCRIT 26.8 % (38.0-50.0); HEMOGLOBIN 8.7 G/DL (12.5-16.6); MCV 95.4 FL (86-99)
[2017-10-04] VITALS: BP 120/52
[2017-10-04 03:52] VITALS: BP 144/64
[2017-10-04 05:43] LABS: BASOPHIL (%) 0.2 % (0-1); EOSINOPHIL (%) 4.6 % (0-5); EOSINOPHIL COUNT 0.2 K/uL (0-0.3); HEMATOCRIT 26.8 % (38.0-50.0); HEMOGLOBIN 8.7 G/DL (12.5-16.6); IMMATURE GRANULOCYTE (%) 0.2 % (0.0-0.7); LYMPHOCYTE (%) 9.1 % (15-42); LYMPHOCYTE COUNT 0.4 K/uL (1.0-2.8); MCH 31.5 PG (29.0-34.0); MCHC 32.5 G/DL (30.0-36.0); MCV 97.1 FL (86-99); MONOCYTE (%) 19.1 % (3-12); MONOCYTE COUNT 0.9 K/uL (0-0.8); NEUTROPHIL (%) 66.8 % (45-76); NEUTROPHIL COUNT 3.1 K/uL (1.8-6.4); PLATELET COUNT 105 K/uL (156-360); RBC DIS.WIDTH-CV 15.7 % (11.8-14.6); RBC DIS.WIDTH-SD 55.5 % (39-53); RED BLOOD COUNT 2.76 M/uL (4.00-5.50); WHITE BLOOD COUNT 4.6 K/uL (4.1-10.2)
[2017-10-04 06:07] LABS: CHLORIDE 95 MEQ/L (99-109); GFR ESTIMATE (CALCULATED) 8 mL/min/ (58.99-99999); GLUCOSE 106 mg/dL (70-99); POTASSIUM 3.9 MEQ/L (3.7-5.4); SODIUM 137 MEQ/L (136-147); VANCOMYCIN, TROUGH 17.2 MCG/ML (10-20)
[2017-10-04 06:08] LABS: CREATININE 7.2 MG/DL (0.6-1.3); UREA NITROGEN (BUN) 38 mg/dL (9-23)
[2017-10-04 07:05] VITALS: BP 133/63
[2017-10-04 08:43] LABS: HEMATOCRIT 28.3 % (38.0-50.0); HEMOGLOBIN 9.1 G/DL (12.5-16.6); MCV 96.3 FL (86-99)
[2017-10-04 16:59] VITALS: BP 133/61
[2017-10-04 19:43] VITALS: BP 134/66
[2017-10-04 19:48] LABS: HEMOGLOBIN 9.4 G/DL (12.5-16.6); MCV 96.7 FL (86-99)
[2017-10-04 23:51] VITALS: BP 123/60
[2017-10-05 04:47] VITALS: BP 143/87
[2017-10-05 05:07] LABS: HEMATOCRIT 28.7 % (38.0-50.0); HEMOGLOBIN 9.3 G/DL (12.5-16.6)
[2017-10-05 05:15] LABS: BASOPHIL (%) 0.4 % (0-1); EOSINOPHIL (%) 4.1 % (0-5); EOSINOPHIL COUNT 0.2 K/uL (0-0.3); HEMATOCRIT 28.7 % (38.0-50.0); HEMOGLOBIN 9.2 G/DL (12.5-16.6); IMMATURE GRANULOCYTE (%) 0.4 % (0.0-0.7); LYMPHOCYTE (%) 7.8 % (15-42); LYMPHOCYTE COUNT 0.4 K/uL (1.0-2.8); MCH 30.8 PG (29.0-34.0); MCHC 32.1 G/DL (30.0-36.0); MONOCYTE (%) 17.3 % (3-12); MONOCYTE COUNT 0.9 K/uL (0-0.8); NEUTROPHIL COUNT 3.8 K/uL (1.8-6.4); PLATELET COUNT 135 K/uL (156-360); RBC DIS.WIDTH-CV 15.6 % (11.8-14.6); RBC DIS.WIDTH-SD 54.9 % (39-53); RED BLOOD COUNT 2.99 M/uL (4.00-5.50); WHITE BLOOD COUNT 5.4 K/uL (4.1-10.2)
[2017-10-05 05:47] LABS: CHLORIDE 96 MEQ/L (99-109); GLUCOSE 100 mg/dL (70-99); SODIUM 135 MEQ/L (136-147); UREA NITROGEN (BUN) 26 mg/dL (9-23); VANCOMYCIN, TROUGH 24.4 MCG/ML (10-20)
[2017-10-05 05:50] LABS: CREATININE 5.4 MG/DL (0.6-1.3); GFR ESTIMATE (CALCULATED) 11 mL/min/ (58.99-99999); POTASSIUM 4.7 MEQ/L (3.7-5.4)
[2017-10-05 12:39] VITALS: BP 117/64
[2017-10-05 14:56] VITALS: BP 110/55
[2017-10-05 19:08] VITALS: BP 109/59
[2017-10-05 19:34] VITALS: BP 110/65
[2017-10-05 19:50] LABS: HEMATOCRIT 28.9 % (38.0-50.0); HEMOGLOBIN 9.3 G/DL (12.5-16.6); MCV 95.7 FL (86-99)
[2017-10-05 22:16] VITALS: BP 137/60
[2017-10-06 03:53] VITALS: BP 117/59
[2017-10-06 08:56] VITALS: BP 134/66
[2017-10-06 09:01] LABS: HEMATOCRIT 28.7 % (38.0-50.0); HEMOGLOBIN 9.1 G/DL (12.5-16.6)
[2017-10-06 10:45] VITALS: BP 124/60
[2017-10-06] MEDS ORDERED: VANCOMYCIN HCL1 GM IV (16:45)
[2017-10-06] MEDS ORDERED: CARVEDILOL3.125 MG PO (16:46)
== END 2017-10-06 17:37 | disposition home or self-care (01) | DRG 871 ==
LOC: EME 10:30 → 4EAST 14:18 → EDOF 14:18 → ENRESERV 14:20 → 4EAST 15:32
PROVIDERS: Emergency Medicine; Hospitalist; Internal Medicine; Internal Medicine Gastroenterology; Internal Medicine Nephrology
PROC: 30233N1 Transfusion of Nonautologous Red Blood Cells into Peripheral Vein, Percutaneous Approach (ICD-10-PCS; principal; 2017-09-29)
PROC: B246ZZ4 Ultrasonography of Right and Left Heart, Transesophageal (ICD-10-PCS; 2017-10-04)
DX: A41.2 Sepsis due to unspecified staphylococcus (principal); N18.6 End stage renal disease; J13 Pneumonia due to Streptococcus pneumoniae; D62 Acute posthemorrhagic anemia; E87.2 Acidosis; I33.0 Acute and subacute infective endocarditis; R65.10 Systemic inflammatory response syndrome (SIRS) of non-infectious origin without acute organ dysfunction; R78.81 Bacteremia; I35.8 Other nonrheumatic aortic valve disorders; I50.22 Chronic systolic (congestive) heart failure; I13.2 Hypertensive heart and chronic kidney disease with heart failure and with stage 5 chronic kidney disease, or end stage renal disease; K57.90 Diverticulosis of intestine, part unspecified, without perforation or abscess without bleeding; K57.30 Diverticulosis of large intestine without perforation or abscess without bleeding; B95.7 Other staphylococcus as the cause of diseases classified elsewhere; R74.8 Abnormal levels of other serum enzymes; J43.9 Emphysema, unspecified; I25.5 Ischemic cardiomyopathy; H91.90 Unspecified hearing loss, unspecified ear; D63.1 Anemia in chronic kidney disease; E78.5 Hyperlipidemia, unspecified; I25.10 Atherosclerotic heart disease of native coronary artery without angina pectoris; K57.10 Diverticulosis of small intestine without perforation or abscess without bleeding; D69.6 Thrombocytopenia, unspecified; I25.2 Old myocardial infarction; Z99.2 Dependence on renal dialysis; Z79.02 Long term (current) use of antithrombotics/antiplatelets; Z86.74 Personal history of sudden cardiac arrest; Z95.5 Presence of coronary angioplasty implant and graft; Z88.6 Allergy status to analgesic agent; Q27.33 Arteriovenous malformation of digestive system vessel; Z95.810 Presence of automatic (implantable) cardiac defibrillator; Z87.891 Personal history of nicotine dependence; Z86.14 Personal history of Methicillin resistant Staphylococcus aureus infection; Z86.79 Personal history of other diseases of the circulatory system; I35.1 Nonrheumatic aortic (valve) insufficiency
CPT/HCPCS: 71045; 71046; 74177; 80048; 80053; 80069; 80170; 80202; 81003; 83605; 84484; 85014; 85018; 85025; 85027; 86850; 86900; 86901; 86920; 87040; 87077; 87186; 87801; 93005; 93306; 93312; 94010; 94640; 99202; 99281; 99285; C9113; J0881; J1580; J1756; J2250; J2270; J3370; J7030; J7050; P9016

== ENCOUNTER 2017-10-07 06:28 | Emergency (ER) | payer OTHER, MEDICARE ==
[~2017-10-07] VITALS: Ht 180.3 cm; Wt 77.5 kg
[~2017-10-07 06:28] MED LIST changes: +CARVEDILOL3.125 MG PO; +NEPHRO-VITE,1 TABLET PO; +PRILOSEC OTC20 MG PO; +PRILOSEC20 MG PO; +VANCOMYCIN HCL1 GM IV
[2017-10-07 07:43] LABS: BASOPHIL (%) 0.5 % (0-1); BASOPHIL COUNT 0.1 K/uL (0-0.1); EOSINOPHIL (%) 3.1 % (0-5); EOSINOPHIL COUNT 0.3 K/uL (0-0.3); HEMATOCRIT 35.3 % (38.0-50.0); IMMATURE GRANULOCYTE (%) 0.4 % (0.0-0.7); LYMPHOCYTE (%) 7.4 % (15-42); LYMPHOCYTE COUNT 0.8 K/uL (1.0-2.8); MCH 31.2 PG (29.0-34.0); MCHC 32.3 G/DL (30.0-36.0); MCV 96.7 FL (86-99); MONOCYTE (%) 10.8 % (3-12); MONOCYTE COUNT 1.1 K/uL (0-0.8); NEUTROPHIL (%) 77.8 % (45-76); RBC DIS.WIDTH-CV 15.8 % (11.8-14.6); RBC DIS.WIDTH-SD 56.1 % (39-53); WHITE BLOOD COUNT 10.3 K/uL (4.1-10.2)
[2017-10-07 07:44] LABS: HEMOGLOBIN 11.4 G/DL (12.5-16.6); PLATELET COUNT 211 K/uL (156-360); RED BLOOD COUNT 3.65 M/uL (4.00-5.50)
[2017-10-07 09:49] LABS: CHLORIDE 99 mEq/L (99-109); GLUCOSE 115 mg/dL (70-99); POTASSIUM 5.4 mEq/L (3.7-5.4); SODIUM 139 mEq/L (136-147)
[2017-10-07 09:53] LABS: GFR ESTIMATE (CALCULATED) 8 mL/min/ (58.99-99999)
[2017-10-07 09:58] LABS: CREATININE 7.2 mg/dL (0.6-1.3); UREA NITROGEN (BUN) 42 mg/dL (9-23)
[2017-10-07 10:29] LABS: VANCOMYCIN, TROUGH 18.6 MCG/ML (10-20)
[2017-10-07 14:27] VITALS: BP 117/70
== END 2017-10-07 14:28 | disposition home or self-care (01) ==
LOC: EME 06:28
PROVIDERS: Emergency Medicine
PROC: 5A1D70Z Performance of Urinary Filtration, Intermittent, Less than 6 Hours Per Day (ICD-10-PCS; principal; 2017-10-07)
DX: N18.9 Chronic kidney disease, unspecified (principal); I50.9 Heart failure, unspecified; I33.0 Acute and subacute infective endocarditis; Z99.2 Dependence on renal dialysis; J81.1 Chronic pulmonary edema; J44.9 Chronic obstructive pulmonary disease, unspecified; I25.2 Old myocardial infarction; Z79.02 Long term (current) use of antithrombotics/antiplatelets; Z79.891 Long term (current) use of opiate analgesic; Z79.51 Long term (current) use of inhaled steroids; Z87.891 Personal history of nicotine dependence; Z95.810 Presence of automatic (implantable) cardiac defibrillator; Z90.89 Acquired absence of other organs; Z88.5 Allergy status to narcotic agent; Z88.6 Allergy status to analgesic agent
CPT/HCPCS: 71045; 80048; 80202; 85025; 93005; 94640; 94799; 99281; 99284; J3370

== ENCOUNTER 2017-10-20 08:22 | Day surgery (SDC) | payer OTHER, MEDICARE ==
[~2017-10-20] VITALS: Ht 180.3 cm; Wt 74.4 kg
== END 2017-10-20 11:13 | disposition home or self-care (01) ==
LOC: CATH 08:22
DX: T82.858A Stenosis of other vascular prosthetic devices, implants and grafts, initial encounter (principal); Y83.2 Surgical operation with anastomosis, bypass or graft as the cause of abnormal reaction of the patient, or of later complication, without mention of misadventure at the time of the procedure; N18.6 End stage renal disease; Z99.2 Dependence on renal dialysis; I25.10 Atherosclerotic heart disease of native coronary artery without angina pectoris; Z87.891 Personal history of nicotine dependence; Z79.02 Long term (current) use of antithrombotics/antiplatelets
CPT/HCPCS: 87641; C1725; C1769; C1874; C1894; J1644; J2250; J3010

== ENCOUNTER → 2017-11-02 | Outpatient (CLI) | payer OTHER, MEDICARE | END | disposition home or self-care (01) | LOC: AMB 13:52 | PROC: 0WJ8XZZ Inspection of Chest Wall, External Approach (ICD-10-PCS; principal; 2017-11-02) | DX: Z45.2 Encounter for adjustment and management of vascular access device (principal); Z53.09 Procedure and treatment not carried out because of other contraindication ==

== ENCOUNTER 2017-11-18 06:23 | Day surgery (SDC) | payer OTHER, MEDICARE ==
[~2017-11-18] VITALS: Ht 180.3 cm; Wt 74.4 kg
[~2017-11-18 06:23] MED LIST changes: +DURICEF500 MG PO; +FINASTERIDE5 MG PO; +NEPHROCAPS SOFTG1 MG PO; +TRAZODONE HCL100 MG PO
== END 2017-11-18 10:05 | disposition home or self-care (01) ==
LOC: CATH 06:23 → OPR 07:30 → CATH 08:30
DX: T82.868A Thrombosis due to vascular prosthetic devices, implants and grafts, initial encounter (principal); Y83.2 Surgical operation with anastomosis, bypass or graft as the cause of abnormal reaction of the patient, or of later complication, without mention of misadventure at the time of the procedure; N18.6 End stage renal disease; Z99.2 Dependence on renal dialysis; I25.10 Atherosclerotic heart disease of native coronary artery without angina pectoris; Z87.891 Personal history of nicotine dependence; Z79.02 Long term (current) use of antithrombotics/antiplatelets
CPT/HCPCS: 87641; C1725; C1757; C1769; C1894; C2628; J0690; J1200; J1644; J2250; J3010; S0020

== ENCOUNTER 2017-11-27 15:37 | Inpatient (IN) | payer OTHER, MEDICARE ==
[~2017-11-27] VITALS: Ht 180.3 cm; Wt 78.8 kg
[2017-11-27 16:13] LABS: MCH 33.8 PG (29.0-34.0); MCHC 33.3 G/DL (30.0-36.0); MCV 101.4 FL (86-99); PLATELET COUNT 197 K/uL (156-360); RBC DIS.WIDTH-CV 16.4 % (11.8-14.6); RBC DIS.WIDTH-SD 60.4 % (39-53); RED BLOOD COUNT 2.96 M/uL (4.00-5.50); WHITE BLOOD COUNT 6.5 K/uL (4.1-10.2)
[2017-11-27 16:21] LABS: PTT 29.8 SEC (25-37)
[2017-11-27 16:24] LABS: CHLORIDE 99 mEq/L (99-109); SODIUM 139 mEq/L (136-147)
[2017-11-27 16:26] LABS: GLUCOSE 105 mg/dL (70-99); TOTAL PROTEIN 7.5 g/dL (6.4-8.3)
[2017-11-27 16:28] LABS: TOTAL BILIRUBIN 0.5 mg/dL (0.0-1.0)
[2017-11-27 16:30] LABS: ALKALINE PHOSPHATASE 259 IU/L (3-129); CREATININE 4.1 mg/dL (0.6-1.3); GFR ESTIMATE (CALCULATED) 15 mL/min/ (58.99-99999)
[2017-11-27 16:31] LABS: UREA NITROGEN (BUN) 23 mg/dL (9-23)
[2017-11-27 16:32] LABS: AST (GOT) 16 IU/L (2-34)
[2017-11-27 16:33] LABS: ALT (GPT) 7 IU/L (3-49)
[2017-11-27 16:34] LABS: TROP-I INTERPRETATION INDETERMINATE; TROPONIN-I 0.34 ng/mL (0.0-0.30)
[2017-11-27] MEDS ORDERED: CARVEDILOL6.25 MG PO (17:20)
[2017-11-27 20:00] VITALS: BP 113/54
[2017-11-27 22:26] LABS: TROP-I INTERPRETATION NEGATIVE
[2017-11-27 23:48] VITALS: BP 95/52
[2017-11-28] VITALS (7 sets, daily range): BP systolic 95–134; BP diastolic 55–63
[2017-11-28 05:24] LABS: HEMOGLOBIN 9.9 G/DL (12.5-16.6); MCH 33.1 PG (29.0-34.0); MCHC 31.9 G/DL (30.0-36.0); MCV 103.7 FL (86-99); PLATELET COUNT 192 K/uL (156-360); RBC DIS.WIDTH-CV 16.6 % (11.8-14.6); RBC DIS.WIDTH-SD 62.6 % (39-53); RED BLOOD COUNT 2.99 M/uL (4.00-5.50); WHITE BLOOD COUNT 5.7 K/uL (4.1-10.2)
[2017-11-28 05:53] LABS: CHLORIDE 98 MEQ/L (99-109); GFR ESTIMATE (CALCULATED) 11 mL/min/ (58.99-99999); GLUCOSE 92 mg/dL (70-99); POTASSIUM 4.7 MEQ/L (3.7-5.4); SODIUM 142 MEQ/L (136-147)
[2017-11-28 06:13] LABS: TROP-I INTERPRETATION INDETERMINATE; TROPONIN-I 0.39 ng/mL (0.0-0.30)
[2017-11-28 06:16] LABS: CREATININE 5.3 MG/DL (0.6-1.3); UREA NITROGEN (BUN) 36 mg/dL (9-23)
[2017-11-28 10:29] LABS: TROP-I INTERPRETATION INDETERMINATE; TROPONIN-I 0.35 ng/mL (0.0-0.30)
[2017-11-29] VITALS (42 sets, daily range): BP systolic 59–145; BP diastolic 37–85
[2017-11-29 04:52] LABS: HEMATOCRIT 26.3 % (38.0-50.0); HEMOGLOBIN 8.7 G/DL (12.5-16.6); MCH 33.7 PG (29.0-34.0); MCHC 33.1 G/DL (30.0-36.0); MCV 101.9 FL (86-99); PLATELET COUNT 154 K/uL (156-360); RBC DIS.WIDTH-CV 16.4 % (11.8-14.6); RBC DIS.WIDTH-SD 60.5 % (39-53); RED BLOOD COUNT 2.58 M/uL (4.00-5.50); WHITE BLOOD COUNT 5.7 K/uL (4.1-10.2)
[2017-11-29 05:13] LABS: CHLORIDE 98 mEq/L (99-109); POTASSIUM 5.5 mEq/L (3.7-5.4); SODIUM 139 mEq/L (136-147)
[2017-11-29 05:15] LABS: GLUCOSE 103 mg/dL (70-99)
[2017-11-29 05:19] LABS: GFR ESTIMATE (CALCULATED) 7 mL/min/ (58.99-99999)
[2017-11-29 05:22] LABS: CREATININE 7.7 mg/dL (0.6-1.3); UREA NITROGEN (BUN) 61 mg/dL (9-23)
[2017-11-29 09:42] LABS: HEMATOCRIT 22.8 % (38.0-50.0); HEMOGLOBIN 7.6 G/DL (12.5-16.6); MCV 100.4 FL (86-99)
[2017-11-29 10:00] LABS: TROP-I INTERPRETATION NEGATIVE; TROPONIN-I 0.23 ng/mL (0.0-0.30)
[2017-11-29 20:17] LABS: HEMATOCRIT 27.5 % (38.0-50.0); HEMOGLOBIN 9.2 G/DL (12.5-16.6); MCH 31.4 PG (29.0-34.0); MCHC 33.5 G/DL (30.0-36.0); MCV 93.9 FL (86-99); PLATELET COUNT 150 K/uL (156-360); RBC DIS.WIDTH-CV 18.4 % (11.8-14.6); RED BLOOD COUNT 2.93 M/uL (4.00-5.50); WHITE BLOOD COUNT 22.3 K/uL (4.1-10.2)
[2017-11-29 20:28] LABS: TROP-I INTERPRETATION NEGATIVE; TROPONIN-I 0.26 ng/mL (0.0-0.30)
[2017-11-29 22:02] LABS: HEMATOCRIT 24.4 % (38.0-50.0); HEMOGLOBIN 8.6 G/DL (12.5-16.6); MCV 93.1 FL (86-99)
[2017-11-30] VITALS (8 sets, daily range): BP systolic 91–99; BP diastolic 63–74
== END 2017-11-30 03:04 | disposition short-term general hospital (02) | DRG 280 ==
LOC: EME 15:37 → EDOF 16:59 → 4WEST 16:59 → 4EAST 16:59 → EDOF 16:59 → 4WEST 16:59 → ENRESERV 17:00 → 4EAST 19:45 → ENRESERV 11-29 10:13 → 4WEST 11-29 10:20
PROVIDERS: Emergency Medicine; Hospitalist; Internal Medicine Critical Care Medicine; Internal Medicine Nephrology; Physician Assistant; Surgery
PROC: 0DC68ZZ Extirpation of Matter from Stomach, Via Natural or Artificial Opening Endoscopic (ICD-10-PCS; principal; 2017-11-29)
PROC: 5A1D70Z Performance of Urinary Filtration, Intermittent, Less than 6 Hours Per Day (ICD-10-PCS; principal; 2017-11-29)
PROC: 30233R1 Transfusion of Nonautologous Platelets into Peripheral Vein, Percutaneous Approach (ICD-10-PCS; principal; 2017-11-29)
PROC: 30233K1 Transfusion of Nonautologous Frozen Plasma into Peripheral Vein, Percutaneous Approach (ICD-10-PCS; principal; 2017-11-29)
PROC: 30233N1 Transfusion of Nonautologous Red Blood Cells into Peripheral Vein, Percutaneous Approach (ICD-10-PCS; principal; 2017-11-29)
DX: I21.4 Non-ST elevation (NSTEMI) myocardial infarction (principal); R57.8 Other shock; I25.5 Ischemic cardiomyopathy; I35.0 Nonrheumatic aortic (valve) stenosis; D62 Acute posthemorrhagic anemia; I13.2 Hypertensive heart and chronic kidney disease with heart failure and with stage 5 chronic kidney disease, or end stage renal disease; I50.22 Chronic systolic (congestive) heart failure; K25.0 Acute gastric ulcer with hemorrhage; N18.6 End stage renal disease; I95.3 Hypotension of hemodialysis; Z99.2 Dependence on renal dialysis; D68.8 Other specified coagulation defects; D69.1 Qualitative platelet defects; J44.9 Chronic obstructive pulmonary disease, unspecified; I25.110 Atherosclerotic heart disease of native coronary artery with unstable angina pectoris; L27.1 Localized skin eruption due to drugs and medicaments taken internally; T45.515A Adverse effect of anticoagulants, initial encounter; D63.1 Anemia in chronic kidney disease; E78.5 Hyperlipidemia, unspecified; K44.9 Diaphragmatic hernia without obstruction or gangrene; K57.91 Diverticulosis of intestine, part unspecified, without perforation or abscess with bleeding; I25.2 Old myocardial infarction; H91.90 Unspecified hearing loss, unspecified ear; Z79.82 Long term (current) use of aspirin; Z79.02 Long term (current) use of antithrombotics/antiplatelets; Z86.79 Personal history of other diseases of the circulatory system; Z87.11 Personal history of peptic ulcer disease; Z95.2 Presence of prosthetic heart valve; Z95.5 Presence of coronary angioplasty implant and graft; Z95.810 Presence of automatic (implantable) cardiac defibrillator; Z87.891 Personal history of nicotine dependence; Z60.2 Problems related to living alone; Z80.0 Family history of malignant neoplasm of digestive organs; Z82.49 Family history of ischemic heart disease and other diseases of the circulatory system
CPT/HCPCS: 71045; 80048; 80053; 82948; 83605; 84484; 85014; 85018; 85025; 85027; 85384; 85610; 85730; 86850; 86900; 86901; 86920; 87040; 87641; 93005; 94640 76; 94760; 94799; 99281; 99285; C1751; C9113; J1270; J1644; J1650; J2250; J2270; J2405; J2550; J2597; J2765; J3010; J7040; J7050; P9016; P9017; P9035; P9045; P9047

== ENCOUNTER 2017-12-07 21:51 | Inpatient (IN) | payer OTHER, MEDICARE ==
[~2017-12-07] VITALS: Ht 152.4 cm; Wt 75.0 kg
[2017-12-07 22:44] LABS: CHLORIDE 99 mEq/L (99-109); SODIUM 143 mEq/L (136-147)
[2017-12-07 22:44] LABS: HEMATOCRIT 26.5 % (38.0-50.0); HEMOGLOBIN 8.8 G/DL (12.5-16.6); MCHC 33.2 G/DL (30.0-36.0); MCV 99.3 FL (86-99); PLATELET COUNT 139 K/uL (156-360); RBC DIS.WIDTH-CV 16.5 % (11.8-14.6); RBC DIS.WIDTH-SD 58.4 % (39-53); RED BLOOD COUNT 2.67 M/uL (4.00-5.50); WHITE BLOOD COUNT 6.7 K/uL (4.1-10.2)
[2017-12-07 22:46] LABS: GLUCOSE 114 mg/dL (70-99)
[2017-12-07 22:49] LABS: CREATININE 4.7 mg/dL (0.6-1.3); GFR ESTIMATE (CALCULATED) 13 mL/min/ (58.99-99999)
[2017-12-07 22:50] LABS: UREA NITROGEN (BUN) 36 mg/dL (9-23)
[2017-12-07 22:55] LABS: TROP-I INTERPRETATION POSITIVE
[2017-12-07 22:59] LABS: TROPONIN-I 27.24 ng/mL (0.0-0.30)
[2017-12-07 23:35] LABS: ALBUMIN 3.5 g/dL (3.2-4.8)
[2017-12-07 23:38] LABS: TOTAL PROTEIN 6.3 g/dL (6.4-8.3)
[2017-12-07 23:40] LABS: TOTAL BILIRUBIN 0.9 mg/dL (0.0-1.0)
[2017-12-07 23:41] LABS: ALKALINE PHOSPHATASE 162 IU/L (3-129)
[2017-12-07 23:43] LABS: AST (GOT) 21 IU/L (2-34); DIRECT BILIRUBIN 0.4 mg/dL (0.0-0.3)
[2017-12-07 23:44] LABS: ALT (GPT) 72 IU/L (3-49); LIPASE 87 U/L (1.0-51.0)
[2017-12-08] VITALS (10 sets, daily range): BP systolic 99–148; BP diastolic 56–111
[2017-12-08 00:32] LABS: BASE EXCESS 7.9 mEq/L (-3 to +3); CARBOXY HGB 1.9 % (0-5); COMMENTS - BLOOD GASES C+; FI02 21 %; METHEMOGLOBIN 0.8 % (0-1.5); PCO2 42 mm Hg (35-45); PO2 66 mm Hg (80-100); SITE RR; TOTAL RESP RATE 16 resp/min; pH 7.49 (7.35-7.45)
[2017-12-08 00:59] LABS: INTER. NORMALIZED RATIO 1.2
[2017-12-08 01:02] LABS: PTT 30.7 SEC (25-37)
[2017-12-08 04:29] LABS: TROP-I INTERPRETATION POSITIVE
[2017-12-08 04:36] LABS: TROPONIN-I 21.27 ng/mL (0.0-0.30)
[2017-12-08 10:24] LABS: HEMATOCRIT 29.9 % (38.0-50.0); HEMOGLOBIN 9.3 G/DL (12.5-16.6); MCH 31.2 PG (29.0-34.0); MCHC 31.1 G/DL (30.0-36.0); MCV 100.3 FL (86-99); PLATELET COUNT 157 K/uL (156-360); RBC DIS.WIDTH-CV 16.6 % (11.8-14.6); RBC DIS.WIDTH-SD 59.7 % (39-53); RED BLOOD COUNT 2.98 M/uL (4.00-5.50)
[2017-12-08] MEDS ORDERED: NITROSTAT0.4 MG SL (10:37)
[2017-12-08 10:45] LABS: ALBUMIN 3.5 G/DL (3.2-4.8); ALKALINE PHOSPHATASE 146 IU/L (3-129); ALT (GPT) 54 IU/L (3-49); AST (GOT) 21 IU/L (2-34); CHLORIDE 100 MEQ/L (99-109); CREATININE 5.3 MG/DL (0.6-1.3); GFR ESTIMATE (CALCULATED) 11 mL/min/ (58.99-99999); GLUCOSE 118 mg/dL (70-99); POTASSIUM 4.4 MEQ/L (3.7-5.4); SODIUM 141 MEQ/L (136-147); TOTAL PROTEIN 6.2 G/DL (6.4-8.3); UREA NITROGEN (BUN) 46 mg/dL (9-23)
[2017-12-08 10:56] LABS: TROP-I INTERPRETATION POSITIVE; TROPONIN-I 22.99 ng/mL (0.0-0.30)
[2017-12-09 00:10] VITALS: BP 142/88
[2017-12-09 03:43] VITALS: BP 147/56
[2017-12-09 05:08] LABS: BASOPHIL (%) 0.3 % (0-1); EOSINOPHIL (%) 1.6 % (0-5); EOSINOPHIL COUNT 0.1 K/uL (0-0.3); HEMATOCRIT 28.7 % (38.0-50.0); HEMOGLOBIN 8.9 G/DL (12.5-16.6); IMMATURE GRANULOCYTE (%) 0.4 % (0.0-0.7); LYMPHOCYTE (%) 3.9 % (15-42); LYMPHOCYTE COUNT 0.3 K/uL (1.0-2.8); MCH 31.1 PG (29.0-34.0); MCV 100.3 FL (86-99); MONOCYTE (%) 9.2 % (3-12); MONOCYTE COUNT 0.7 K/uL (0-0.8); NEUTROPHIL (%) 84.6 % (45-76); NEUTROPHIL COUNT 6.3 K/uL (1.8-6.4); PLATELET COUNT 140 K/uL (156-360); RBC DIS.WIDTH-CV 16.7 % (11.8-14.6); RBC DIS.WIDTH-SD 60.7 % (39-53); RED BLOOD COUNT 2.86 M/uL (4.00-5.50); WHITE BLOOD COUNT 7.4 K/uL (4.1-10.2)
[2017-12-09 05:38] LABS: CHLORIDE 98 MEQ/L (99-109); GFR ESTIMATE (CALCULATED) 9 mL/min/ (58.99-99999); GLUCOSE 121 mg/dL (70-99); POTASSIUM 4.5 MEQ/L (3.7-5.4); SODIUM 139 MEQ/L (136-147); UREA NITROGEN (BUN) 63 mg/dL (9-23)
[2017-12-09 05:40] LABS: CREATININE 6.7 MG/DL (0.6-1.3)
[2017-12-09 11:50] LABS: HEPATITIS B SURFACE ANTIGEN Nonreactive
[2017-12-09 12:00] VITALS: BP 116/53
[2017-12-09 17:44] VITALS: BP 103/44
[2017-12-09 19:34] VITALS: BP 88/53
[2017-12-10] VITALS: BP 126/74
[2017-12-10 05:16] VITALS: BP 137/74
[2017-12-10 05:29] LABS: BASOPHIL (%) 0.3 % (0-1); EOSINOPHIL (%) 2.2 % (0-5); EOSINOPHIL COUNT 0.1 K/uL (0-0.3); HEMATOCRIT 28.4 % (38.0-50.0); HEMOGLOBIN 8.9 G/DL (12.5-16.6); IMMATURE GRANULOCYTE (%) 0.5 % (0.0-0.7); LYMPHOCYTE COUNT 0.4 K/uL (1.0-2.8); MCHC 31.3 G/DL (30.0-36.0); MCV 102.2 FL (86-99); MONOCYTE (%) 11.6 % (3-12); MONOCYTE COUNT 0.7 K/uL (0-0.8); NEUTROPHIL (%) 79.4 % (45-76); NEUTROPHIL COUNT 4.8 K/uL (1.8-6.4); PLATELET COUNT 130 K/uL (156-360); RBC DIS.WIDTH-CV 16.5 % (11.8-14.6); RED BLOOD COUNT 2.78 M/uL (4.00-5.50)
[2017-12-10 06:08] LABS: CHLORIDE 100 MEQ/L (99-109); GFR ESTIMATE (CALCULATED) 11 mL/min/ (58.99-99999); GLUCOSE 144 mg/dL (70-99); POTASSIUM 4.2 MEQ/L (3.7-5.4); SODIUM 140 MEQ/L (136-147); UREA NITROGEN (BUN) 49 mg/dL (9-23)
[2017-12-10 06:15] LABS: CREATININE 5.3 MG/DL (0.6-1.3)
[2017-12-10 12:20] VITALS: BP 95/51
[2017-12-10 15:42] VITALS: BP 148/66
[2017-12-10 20:22] VITALS: BP 137/66
[2017-12-11 00:45] VITALS: BP 105/70
[2017-12-11 04:44] VITALS: BP 136/87
[2017-12-11 06:08] LABS: CHLORIDE 103 MEQ/L (99-109); CREATININE 5.3 MG/DL (0.6-1.3); GFR ESTIMATE (CALCULATED) 11 mL/min/ (58.99-99999); GLUCOSE 116 mg/dL (70-99); POTASSIUM 4.2 MEQ/L (3.7-5.4); SODIUM 139 MEQ/L (136-147); UREA NITROGEN (BUN) 39 mg/dL (9-23)
[2017-12-11 06:10] LABS: BASOPHIL (%) 0.3 % (0-1); EOSINOPHIL (%) 2.1 % (0-5); EOSINOPHIL COUNT 0.1 K/uL (0-0.3); HEMATOCRIT 27.1 % (38.0-50.0); HEMOGLOBIN 8.5 G/DL (12.5-16.6); IMMATURE GRANULOCYTE (%) 0.3 % (0.0-0.7); LYMPHOCYTE (%) 5.6 % (15-42); LYMPHOCYTE COUNT 0.4 K/uL (1.0-2.8); MCH 32.1 PG (29.0-34.0); MCHC 31.4 G/DL (30.0-36.0); MCV 102.3 FL (86-99); MONOCYTE (%) 9.4 % (3-12); MONOCYTE COUNT 0.6 K/uL (0-0.8); NEUTROPHIL (%) 82.3 % (45-76); NEUTROPHIL COUNT 5.2 K/uL (1.8-6.4); PLATELET COUNT 133 K/uL (156-360); RBC DIS.WIDTH-CV 16.1 % (11.8-14.6); RBC DIS.WIDTH-SD 60.5 % (39-53); RED BLOOD COUNT 2.65 M/uL (4.00-5.50); WHITE BLOOD COUNT 6.3 K/uL (4.1-10.2)
[2017-12-11 11:50] VITALS: BP 133/80
[2017-12-11] MEDS ORDERED: CLOPIDOGREL75 MG PO (11:52)
[2017-12-11] MEDS ORDERED: AMBIEN5 MG PO (11:55)
[2017-12-11] MEDS ORDERED: ALBUTEROL1.25 MG/3 IH (13:20)
[2017-12-11] MEDS ORDERED: PROAIR HFA8.5 GM IH (13:20)
== END 2017-12-11 15:15 | disposition home or self-care (01) | DRG 280 ==
LOC: EME 21:51 → EDOF 12-08 01:59 → 4EAST 12-08 01:59 → ENRESERV 12-08 02:02 → CANRESERV 12-08 02:02 → EDOF 12-08 02:28 → ENRESERV 12-08 02:31 → 4EAST 12-08 06:20
PROVIDERS: Emergency Medicine; Hospitalist; Internal Medicine Nephrology
PROC: 02HV33Z Insertion of Infusion Device into Superior Vena Cava, Percutaneous Approach (ICD-10-PCS; principal; 2017-12-08)
PROC: 30233N1 Transfusion of Nonautologous Red Blood Cells into Peripheral Vein, Percutaneous Approach (ICD-10-PCS; principal; 2017-12-08)
DX: I22.2 Subsequent non-ST elevation (NSTEMI) myocardial infarction (principal); I21.9 Acute myocardial infarction, unspecified; E87.2 Acidosis; I82.621 Acute embolism and thrombosis of deep veins of right upper extremity; J44.1 Chronic obstructive pulmonary disease with (acute) exacerbation; N18.6 End stage renal disease; I13.2 Hypertensive heart and chronic kidney disease with heart failure and with stage 5 chronic kidney disease, or end stage renal disease; I50.9 Heart failure, unspecified; I25.5 Ischemic cardiomyopathy; D63.1 Anemia in chronic kidney disease; I35.0 Nonrheumatic aortic (valve) stenosis; I10 Essential (primary) hypertension; K92.2 Gastrointestinal hemorrhage, unspecified; E78.5 Hyperlipidemia, unspecified; R23.0 Cyanosis; I71.4 Abdominal aortic aneurysm, without rupture; R01.1 Cardiac murmur, unspecified; Z79.82 Long term (current) use of aspirin; Z95.810 Presence of automatic (implantable) cardiac defibrillator; Z99.2 Dependence on renal dialysis; Z86.74 Personal history of sudden cardiac arrest; Z95.0 Presence of cardiac pacemaker; Z87.891 Personal history of nicotine dependence; Z88.5 Allergy status to narcotic agent; Z95.5 Presence of coronary angioplasty implant and graft; Z80.0 Family history of malignant neoplasm of digestive organs; Z86.79 Personal history of other diseases of the circulatory system; I50.23 Acute on chronic systolic (congestive) heart failure; I25.2 Old myocardial infarction; H91.90 Unspecified hearing loss, unspecified ear; I25.10 Atherosclerotic heart disease of native coronary artery without angina pectoris; Z79.02 Long term (current) use of antithrombotics/antiplatelets
CPT/HCPCS: 36600; 71045; 71046; 80048; 80053; 80076; 82803; 83605; 83690; 84484; 85014; 85018; 85025; 85027; 85610; 85730; 86850; 86900; 86901; 86920; 87040; 87340; 93005; 93971; 94640; 94640 76; 99202; 99281; 99285; C9113; J0881; J1200; P9016

== ENCOUNTER 2017-12-12 10:51 | Inpatient (IN) | payer OTHER, MEDICARE ==
[~2017-12-12] VITALS: Ht 180.3 cm; Wt 84.9 kg
[~2017-12-12 10:51] MED LIST changes: +ALBUTEROL1.25 MG/3 IH; +AMBIEN5 MG PO; +NITROSTAT0.4 MG SL; +PROAIR HFA8.5 GM IH
[2017-12-12 11:54] LABS: BASOPHIL (%) 0.3 % (0-1); EOSINOPHIL COUNT 0.1 K/uL (0-0.3); HEMATOCRIT 28.6 % (38.0-50.0); HEMOGLOBIN 9.1 G/DL (12.5-16.6); IMMATURE GRANULOCYTE (%) 0.4 % (0.0-0.7); LYMPHOCYTE (%) 4.5 % (15-42); LYMPHOCYTE COUNT 0.3 K/uL (1.0-2.8); MCH 32.3 PG (29.0-34.0); MCHC 31.8 G/DL (30.0-36.0); MCV 101.4 FL (86-99); MONOCYTE (%) 7.4 % (3-12); MONOCYTE COUNT 0.5 K/uL (0-0.8); NEUTROPHIL (%) 86.4 % (45-76); NEUTROPHIL COUNT 6.4 K/uL (1.8-6.4); PLATELET COUNT 139 K/uL (156-360); RBC DIS.WIDTH-CV 16.2 % (11.8-14.6); RBC DIS.WIDTH-SD 60.5 % (39-53); RED BLOOD COUNT 2.82 M/uL (4.00-5.50); WHITE BLOOD COUNT 7.3 K/uL (4.1-10.2)
[2017-12-12 12:04] LABS: CHLORIDE 103 mEq/L (99-109); POTASSIUM 4.2 mEq/L (3.7-5.4); SODIUM 140 mEq/L (136-147)
[2017-12-12 12:05] LABS: GLUCOSE 140 mg/dL (70-99)
[2017-12-12 12:09] LABS: CREATININE 5.4 mg/dL (0.6-1.3); GFR ESTIMATE (CALCULATED) 11 mL/min/ (58.99-99999)
[2017-12-12 12:10] LABS: UREA NITROGEN (BUN) 40 mg/dL (9-23)
[2017-12-12 12:15] LABS: TROP-I INTERPRETATION POSITIVE
[2017-12-12 12:18] LABS: TROPONIN-I 7.26 ng/mL (0.0-0.30)
[2017-12-12 16:10] VITALS: BP 125/58
[2017-12-12 18:28] LABS: TROP-I INTERPRETATION POSITIVE; TROPONIN-I 7.43 ng/mL (0.0-0.30)
[2017-12-12 20:21] VITALS: BP 129/66
[2017-12-13 00:03] VITALS: BP 111/51
[2017-12-13 03:58] VITALS: BP 135/62
[2017-12-13 06:35] LABS: HEMATOCRIT 26.7 % (38.0-50.0); HEMOGLOBIN 8.3 G/DL (12.5-16.6); MCH 31.7 PG (29.0-34.0); MCHC 31.1 G/DL (30.0-36.0); MCV 101.9 FL (86-99); PLATELET COUNT 144 K/uL (156-360); RBC DIS.WIDTH-CV 16.1 % (11.8-14.6); RBC DIS.WIDTH-SD 59.8 % (39-53); RED BLOOD COUNT 2.62 M/uL (4.00-5.50); WHITE BLOOD COUNT 8.7 K/uL (4.1-10.2)
[2017-12-13 06:55] LABS: CHLORIDE 99 MEQ/L (99-109); GFR ESTIMATE (CALCULATED) 9 mL/min/ (58.99-99999); POTASSIUM 4.2 MEQ/L (3.7-5.4); SODIUM 135 MEQ/L (136-147); UREA NITROGEN (BUN) 52 mg/dL (9-23)
[2017-12-13 07:05] LABS: CREATININE 6.4 MG/DL (0.6-1.3); GLUCOSE 290 mg/dL (70-99)
[2017-12-13 08:16] VITALS: BP 161/88
[2017-12-13] MEDS ORDERED: RENVELA800 MG PO (15:21)
[2017-12-13] MEDS ORDERED: AMBIEN10 MG PO (15:29)
[2017-12-13] MEDS ORDERED: DUONEB 2.5-0.5 M3 ML AEROSOL (15:30)
[2017-12-13 16:22] VITALS: BP 138/79
[2017-12-13 19:35] VITALS: BP 94/50
[2017-12-13 23:46] VITALS: BP 114/54
[2017-12-14 03:54] VITALS: BP 101/50
[2017-12-14 05:44] LABS: HEMATOCRIT 28.4 % (38.0-50.0); HEMOGLOBIN 8.8 G/DL (12.5-16.6); MCH 31.4 PG (29.0-34.0); MCV 101.4 FL (86-99); PLATELET COUNT 148 K/uL (156-360); RBC DIS.WIDTH-CV 15.9 % (11.8-14.6); RBC DIS.WIDTH-SD 58.5 % (39-53)
[2017-12-14 06:14] LABS: CHLORIDE 100 MEQ/L (99-109); GFR ESTIMATE (CALCULATED) 12 mL/min/ (58.99-99999); POTASSIUM 4.3 MEQ/L (3.7-5.4); SODIUM 139 MEQ/L (136-147); UREA NITROGEN (BUN) 31 mg/dL (9-23)
[2017-12-14 06:15] LABS: CREATININE 4.9 MG/DL (0.6-1.3); GLUCOSE 110 mg/dL (70-99)
[2017-12-14 07:33] VITALS: BP 123/64
[2017-12-14 15:51] VITALS: BP 125/73
[2017-12-14 19:58] VITALS: BP 121/61
[2017-12-14 23:00] VITALS: BP 101/44
[2017-12-14 23:08] VITALS: BP 101/44
[2017-12-15 06:10] LABS: BASOPHIL (%) 0.6 % (0-1); EOSINOPHIL (%) 2.1 % (0-5); EOSINOPHIL COUNT 0.1 K/uL (0-0.3); HEMATOCRIT 25.9 % (38.0-50.0); HEMOGLOBIN 8.3 G/DL (12.5-16.6); IMMATURE GRANULOCYTE (%) 0.4 % (0.0-0.7); LYMPHOCYTE (%) 6.7 % (15-42); LYMPHOCYTE COUNT 0.4 K/uL (1.0-2.8); MCH 32.7 PG (29.0-34.0); MONOCYTE (%) 11.8 % (3-12); MONOCYTE COUNT 0.6 K/uL (0-0.8); NEUTROPHIL (%) 78.4 % (45-76); NEUTROPHIL COUNT 4.1 K/uL (1.8-6.4); PLATELET COUNT 149 K/uL (156-360); RBC DIS.WIDTH-CV 16.1 % (11.8-14.6); RBC DIS.WIDTH-SD 59.5 % (39-53); RED BLOOD COUNT 2.54 M/uL (4.00-5.50); WHITE BLOOD COUNT 5.3 K/uL (4.1-10.2)
[2017-12-15 06:35] LABS: CHLORIDE 102 MEQ/L (99-109); CREATININE 4.1 MG/DL (0.6-1.3); GFR ESTIMATE (CALCULATED) 15 mL/min/ (58.99-99999); GLUCOSE 126 mg/dL (70-99); POTASSIUM 3.9 MEQ/L (3.7-5.4); SODIUM 141 MEQ/L (136-147); UREA NITROGEN (BUN) 28 mg/dL (9-23)
[2017-12-15 07:39] VITALS: BP 135/89
[2017-12-15 15:45] VITALS: BP 91/50
[2017-12-15 19:52] VITALS: BP 175/96
[2017-12-16 07:56] VITALS: BP 124/55
[2017-12-16 08:36] LABS: BASOPHIL (%) 0.5 % (0-1); EOSINOPHIL (%) 2.4 % (0-5); EOSINOPHIL COUNT 0.1 K/uL (0-0.3); HEMATOCRIT 25.5 % (38.0-50.0); HEMOGLOBIN 8.2 G/DL (12.5-16.6); IMMATURE GRANULOCYTE (%) 0.3 % (0.0-0.7); LYMPHOCYTE (%) 5.4 % (15-42); LYMPHOCYTE COUNT 0.3 K/uL (1.0-2.8); MCHC 32.2 G/DL (30.0-36.0); MCV 99.6 FL (86-99); MONOCYTE (%) 10.3 % (3-12); MONOCYTE COUNT 0.6 K/uL (0-0.8); NEUTROPHIL (%) 81.1 % (45-76); NEUTROPHIL COUNT 4.8 K/uL (1.8-6.4); PLATELET COUNT 154 K/uL (156-360); RBC DIS.WIDTH-CV 15.9 % (11.8-14.6); RBC DIS.WIDTH-SD 57.1 % (39-53); RED BLOOD COUNT 2.56 M/uL (4.00-5.50); WHITE BLOOD COUNT 5.9 K/uL (4.1-10.2)
[2017-12-16 09:03] LABS: CHLORIDE 101 MEQ/L (99-109); CREATININE 5.9 MG/DL (0.6-1.3); GFR ESTIMATE (CALCULATED) 10 mL/min/ (58.99-99999); GLUCOSE 120 mg/dL (70-99); POTASSIUM 4.1 MEQ/L (3.7-5.4); SODIUM 137 MEQ/L (136-147); UREA NITROGEN (BUN) 45 mg/dL (9-23)
[2017-12-16] MEDS ORDERED: MIDODRINE HCL5 MG PO (16:10)
[2017-12-16] MEDS ORDERED: PRAVASTATIN SOD80 MG PO (16:10)
== END 2017-12-16 17:23 | disposition home health service (06) | DRG 280 ==
LOC: EME 10:51 → EDOF 13:43 → 5SOUTH 13:43 → ENRESERV 13:45 → 5SOUTH 15:51
PROVIDERS: Emergency Medicine; Hospitalist; Internal Medicine Nephrology; Physician Assistant Medical
PROC: 5A1D70Z Performance of Urinary Filtration, Intermittent, Less than 6 Hours Per Day (ICD-10-PCS; principal; 2017-12-13)
DX: I13.2 Hypertensive heart and chronic kidney disease with heart failure and with stage 5 chronic kidney disease, or end stage renal disease (principal); I50.22 Chronic systolic (congestive) heart failure; N18.6 End stage renal disease; J96.01 Acute respiratory failure with hypoxia; I25.5 Ischemic cardiomyopathy; Z99.2 Dependence on renal dialysis; I21.4 Non-ST elevation (NSTEMI) myocardial infarction; I82.621 Acute embolism and thrombosis of deep veins of right upper extremity; I95.3 Hypotension of hemodialysis; E87.1 Hypo-osmolality and hyponatremia; D63.1 Anemia in chronic kidney disease; I25.10 Atherosclerotic heart disease of native coronary artery without angina pectoris; J44.9 Chronic obstructive pulmonary disease, unspecified; I35.0 Nonrheumatic aortic (valve) stenosis; R10.32 Left lower quadrant pain; G89.29 Other chronic pain; K21.9 Gastro-esophageal reflux disease without esophagitis; E78.5 Hyperlipidemia, unspecified; H91.90 Unspecified hearing loss, unspecified ear; Z86.79 Personal history of other diseases of the circulatory system; Z87.11 Personal history of peptic ulcer disease; Z87.891 Personal history of nicotine dependence; Z95.810 Presence of automatic (implantable) cardiac defibrillator; Z98.890 Other specified postprocedural states
CPT/HCPCS: 71045; 78452; 80048; 83735; 84484; 85025; 85027; 93005; 93017; 94640; 94640 76; 94799; 99202; 99281; 99284; A9500; J0881; J2785; J3010; P9047

== ENCOUNTER 2017-12-28 09:02 | Inpatient (IN) | payer OTHER, MEDICARE ==
[~2017-12-28] VITALS: Ht 177.8 cm; Wt 75.9 kg
[~2017-12-28 09:02] MED LIST changes: +AMBIEN10 MG PO; +DUONEB 2.5-0.5 M3 ML AEROSOL; +MIDODRINE HCL5 MG PO; +PRAVASTATIN SOD80 MG PO
[2017-12-28 09:35] LABS: BASOPHIL (%) 0.5 % (0-1); EOSINOPHIL (%) 1.2 % (0-5); EOSINOPHIL COUNT 0.1 K/uL (0-0.3); HEMATOCRIT 27.7 % (38.0-50.0); HEMOGLOBIN 8.9 G/DL (12.5-16.6); IMMATURE GRANULOCYTE (%) 0.5 % (0.0-0.7); LYMPHOCYTE (%) 6.2 % (15-42); LYMPHOCYTE COUNT 0.4 K/uL (1.0-2.8); MCH 32.7 PG (29.0-34.0); MCHC 32.1 G/DL (30.0-36.0); MCV 101.8 FL (86-99); MONOCYTE (%) 13.6 % (3-12); MONOCYTE COUNT 0.9 K/uL (0-0.8); NEUTROPHIL COUNT 5.2 K/uL (1.8-6.4); RBC DIS.WIDTH-CV 17.2 % (11.8-14.6); RBC DIS.WIDTH-SD 63.9 % (39-53); RED BLOOD COUNT 2.72 M/uL (4.00-5.50); WHITE BLOOD COUNT 6.6 K/uL (4.1-10.2)
[2017-12-28 09:36] LABS: PLATELET COUNT 212 K/uL (156-360)
[2017-12-28 09:40] LABS: INTER. NORMALIZED RATIO 1.2
[2017-12-28 09:43] LABS: PTT 31.9 SEC (25-37)
[2017-12-28 09:44] LABS: CHLORIDE 97 mEq/L (99-109); POTASSIUM 4.8 mEq/L (3.7-5.4); SODIUM 140 mEq/L (136-147)
[2017-12-28 09:45] LABS: GLUCOSE 119 mg/dL (70-99)
[2017-12-28 09:49] LABS: CREATININE 5.3 mg/dL (0.6-1.3); GFR ESTIMATE (CALCULATED) 11 mL/min/ (58.99-99999)
[2017-12-28 09:50] LABS: UREA NITROGEN (BUN) 60 mg/dL (9-23)
[2017-12-28 09:56] LABS: TROP-I INTERPRETATION NEGATIVE; TROPONIN-I 0.29 ng/mL (0.0-0.30)
[2017-12-28] MEDS ORDERED: RENVELA800 MG PO (12:32)
[2017-12-28] MEDS ORDERED: SENSIPAR60 MG PO (12:32)
[2017-12-28] MEDS ORDERED: PROTONIX40 MG PO (12:34)
[2017-12-28] MEDS ORDERED: ATORVASTATIN CA40 MG PO (12:35)
[2017-12-28] MEDS ORDERED: DOXYCYCLINE HY100 MG PO (12:36)
[2017-12-28 13:10] VITALS: BP 86/46
[2017-12-28 15:42] LABS: TROP-I INTERPRETATION INDETERMINATE; TROPONIN-I 0.34 ng/mL (0.0-0.30)
[2017-12-28 16:30] VITALS: BP 86/48
[2017-12-28 19:00] VITALS: BP 87/40
[2017-12-28 21:57] LABS: TROP-I INTERPRETATION INDETERMINATE; TROPONIN-I 0.33 ng/mL (0.0-0.30)
[2017-12-28 23:00] VITALS: BP 85/39
[2017-12-29 02:53] LABS: TROP-I INTERPRETATION NEGATIVE; TROPONIN-I 0.28 ng/mL (0.0-0.30)
[2017-12-29 03:30] VITALS: BP 93/43
[2017-12-29 05:10] LABS: BASOPHIL (%) 0.6 % (0-1); EOSINOPHIL (%) 2.8 % (0-5); EOSINOPHIL COUNT 0.2 K/uL (0-0.3); HEMATOCRIT 24.1 % (38.0-50.0); HEMOGLOBIN 7.9 G/DL (12.5-16.6); IMMATURE GRANULOCYTE (%) 0.4 % (0.0-0.7); LYMPHOCYTE (%) 11.4 % (15-42); LYMPHOCYTE COUNT 0.6 K/uL (1.0-2.8); MCH 33.2 PG (29.0-34.0); MCHC 32.8 G/DL (30.0-36.0); MCV 101.3 FL (86-99); MONOCYTE (%) 16.1 % (3-12); MONOCYTE COUNT 0.9 K/uL (0-0.8); NEUTROPHIL (%) 68.7 % (45-76); NEUTROPHIL COUNT 3.7 K/uL (1.8-6.4); PLATELET COUNT 154 K/uL (156-360); RBC DIS.WIDTH-CV 16.9 % (11.8-14.6); RED BLOOD COUNT 2.38 M/uL (4.00-5.50); WHITE BLOOD COUNT 5.4 K/uL (4.1-10.2)
[2017-12-29 05:26] LABS: ALBUMIN 3.6 G/DL (3.2-4.8); ALKALINE PHOSPHATASE 210 IU/L (3-129); ALT (GPT) 5 IU/L (3-49); AST (GOT) 11 IU/L (2-34); CHLORIDE 97 MEQ/L (99-109); GLUCOSE 92 mg/dL (70-99); POTASSIUM 4.8 MEQ/L (3.7-5.4); SODIUM 138 MEQ/L (136-147); TOTAL BILIRUBIN 0.5 MG/DL (0.0-1.0); TOTAL PROTEIN 6.3 G/DL (6.4-8.3); UREA NITROGEN (BUN) 82 mg/dL (9-23)
[2017-12-29 05:27] LABS: CREATININE 7.3 MG/DL (0.6-1.3); GFR ESTIMATE (CALCULATED) 8 mL/min/ (58.99-99999)
[2017-12-29 06:09] VITALS: BP 121/58
[2017-12-29 07:47] VITALS: BP 90/39
== END 2017-12-29 08:25 | disposition short-term general hospital (02) | DRG 280 ==
LOC: EME 09:02 → EDOF 11:40 → ENRESERV 11:41 → EDOF 11:58 → ENRESERV 12:08 → 4EAST 13:13
PROVIDERS: Emergency Medicine; Hospitalist
DX: I95.9 Hypotension, unspecified (principal); I13.2 Hypertensive heart and chronic kidney disease with heart failure and with stage 5 chronic kidney disease, or end stage renal disease; N18.6 End stage renal disease; I50.9 Heart failure, unspecified; I35.0 Nonrheumatic aortic (valve) stenosis; I21.4 Non-ST elevation (NSTEMI) myocardial infarction; I25.5 Ischemic cardiomyopathy; D63.1 Anemia in chronic kidney disease; D50.0 Iron deficiency anemia secondary to blood loss (chronic); J43.9 Emphysema, unspecified; I25.119 Atherosclerotic heart disease of native coronary artery with unspecified angina pectoris; E78.5 Hyperlipidemia, unspecified; I25.2 Old myocardial infarction; Z95.5 Presence of coronary angioplasty implant and graft; Z95.810 Presence of automatic (implantable) cardiac defibrillator; Z99.2 Dependence on renal dialysis; Z86.74 Personal history of sudden cardiac arrest; Z86.718 Personal history of other venous thrombosis and embolism; Z86.79 Personal history of other diseases of the circulatory system; Z87.891 Personal history of nicotine dependence; Z79.2 Long term (current) use of antibiotics
CPT/HCPCS: 71045; 80048; 80053; 83605; 84484; 85025; 85610; 85730; 93005; 94640; 94640 76; 99202; 99281; 99285; J1160; J7040